=== PATIENT | female | born 1940 | race Caucasian/White ===

== ENCOUNTER 2016-10-13 19:00 | Emergency (ER) | payer BC ==
[~2016-10-13] VITALS: Ht 157.5 cm; Wt 111.7 kg
[~2016-10-13 19:00] MED LIST: ALL300 PO; ATEN-173 PO; ATOR-24 PO; BNC4025 PO; CLBCRM30 EXT; COEN200C4 PO; GLC500 PO
[2016-10-13 19:04] VITALS: TEMP 37.3; Ht 157.5 cm; Wt 111.7 kg
--- NOTE | 2016-10-13 20:52 | EMERGENCY ROOM VISIT NOTE ---
History Report prepared by Mary: Aurora Samano Under the Supervision of: Dr. Rom Webster M.D. First contact with patient: 20:46 Chief Complaint: THROAT PAIN/INJURY Stated Complaint: SORE THROAT,SWOLLEN,DIFFICULT TO BREATHE History of Present Illness The patient is a 76 year old female who presents to the Emergency Room with complaints of worsening throat pain beginning a few days prior to arrival. She states that she has been experiencing pain to her throat as well as a soreness. She is currently on Augmentin which causes diarrhea. She notes that textured food causes an increase in pain. The patient has been experiencing a cough and during has trouble breathing. The patient was seen by both her PCP and [facility]. She denies fever, nasal drainage, or abdominal pain. Source of History: patient Onset: few days [employer] Position: throat Quality: other (pain and soreness) Timing: worsening Modifying Factors (Worsening): eating (texture food) Associated Symptoms: + SOB, + cough, + diarrhea, No abdominal pain Review of Systems All systems have been listed, reviewed, and are negative other than those previously mentioned. Please see Additional Medical History Sheet. Past Medical & Surgical Medical Problems: (1) HLD (hyperlipidemia) (2) HTN (hypertension) (3) Pre-diabetes Family History Patient reports no known family medical history. Social History Smoking Status: Never Smoker Alcohol Use: occasionally Marital Status: Housing Status: lives with significant other Current/Historical Medications Scheduled Allopurinol (Zyloprim *), 300 MG PO HS Atenolol (Tenormin), 25 MG PO HS Atorvastatin (Lipitor), 40 MG PO HS Clobetasol Propionate (Clobetasol Propionate Cream 0.05%), 1 APPLN EXT PRN Coenzyme Q10 (Ubidecarenone) (Coq-10), 1 CAP PO DAILY AT LUNCH Metformin Hcl (Glucophage *), 500 MG PO BID Olmesartan/Hctz (Benicar Hct 40/25 *), 1 TAB PO QAM Allergies Coded Allergies: Neomycin (Verified Allergy, Intermediate, SWELLING, REDNESS, 10/13/16) Nickel (Verified Allergy, Unknown, RASH, 10/13/16) Adhesives (Verified Adverse Reaction, Intermediate, SKIN IRRITATION, ) Corticosteroids (Verified Adverse Reaction, Intermediate, PAIN,TACHYCARDIA ,FEELING OF IMPENDING DOOM with oral steriod, 10/13/16) Physical Exam Vital Signs Date Time Temp Pulse Resp B/P Pulse Ox O2 Delivery O2 Flow Rate FiO2 10/13/16 21:32 98 18 159/84 96 10/13/16 19:07 Room Air 10/13/16 19:04 37.3 119 16 169/90 92 Room Air Physical Exam GENERAL: Patient awake, alert, oriented x 3. Patient follows commands. Patient does not appear toxic. Patient is adequately hydrated and well- nourished. SKIN: No erythema, pallor, cyanosis or rash HEENT: Normal head, pupils equal, reactive to light and accommodation. Ears normal. Oral cavity and posterior pharynx appear normal. Slight tenderness over maxillary sinus, no tenderness over frontal sinus. Neck: Without adenopathy , no neck vein distention. LUNGS: Clear to auscultation. No wheezes, no rales, no rhonchi. HEART: No murmurs. No gallops. No rubs ABDOMEN: Obese and nontender. EXTREMITIES: No signs of trauma or infection. NEUROLOGIC: Cranial nerves II-XII within normal limits. No gross motor sensory function deficits. Medical Decision & Procedures ED Course 2046: Past medical records reviewed. The patient was evaluated in room B4. A complete history and physical examination was performed. 2108: Upon reevaluation, the patient appeared to have improvement of her symptoms. I discussed today's findings with her. She verbalized agreement of the treatment plan. She was discharged home. Medical Decision Nurses notes reviewed. Medical history sheet reviewed. Differential diagnosis includes but is not limited to: Pharyngitis, sinusitis The patient is here with a sensation of choking. She describes phlegm caught in her throat. She's been on 3 days of Augmentin. That has provided little to no relief but has given her diarrhea. The patient's had 2 strep tests which were negative. Examination reveals no swelling or pus in the posterior pharynx. She has no adenopathy. Most likely this the swelling is distal. The patient has had major problems with steroids in the past and is unwilling to take steroids again. We discussed other options including humidified air and gargling with hot saline. Most likely the patient has a viral source for her infection. She will try taking antibiotics for at least another 2 days. The patient's pulse ox was 94% on room air. Impression Primary Impression: Pharyngitis Additional Impression: Sinusitis Scribe Attestation The scribe's documentation has been prepared under my direction and personally reviewed by me in its entirety. I confirm that the note above accurately reflects all work, treatment, procedures, and medical decision making performed by me. Departure Information Dispostion Home / Self-Care Referrals Lissette Mccormick D.O. (PCP) Forms HOME CARE DOCUMENTATION FORM, IMPORTANT VISIT INFORMATION, WORK / SCHOOL INSTRUCTIONS Patient Instructions My [facility] Additional Instructions 600 mg ibuprofen every 6 hours as needed for pain. Humidified air in your bedroom. Take hot showers with steam. Gargle with hot salt water. Continue your antibiotic for at least 2 more days. Problem Qualifiers
[2016-10-13 21:32] VITALS: BP 159/84; PULSE 98; O2SAT 96
[2016-10-14] MEDS ORDERED: ALL300 PO ×2 (13:11)
[2016-10-14] MEDS ORDERED: GLC500 PO (13:11)
[2016-10-14] MEDS ORDERED: COEN200C17 PO ×2 (13:11)
[2016-10-14] MEDS ORDERED: BNC/4025 PO ×2 (13:11)
[2016-10-14] MEDS ORDERED: GLC/500 PO ×2 (16:51)
[2016-10-18] MEDS ORDERED: AMOX500T PO ×2 (11:47)
[2016-10-18] MEDS ORDERED: PRD20 PO ×2 (11:47)
[2016-10-18] MEDS ORDERED: BENZ100C7 PO ×2 (11:47)
[2017-02-06] MEDS ORDERED: METF-384 PO (11:57)
[2017-02-06] MEDS ORDERED: PRLSR20 PO (11:57)
== END 2016-10-13 21:32 | disposition home or self-care (01) ==
LOC: C.EDB 19:01
DX: J02.9 Acute pharyngitis, unspecified (principal); J32.9 Chronic sinusitis, unspecified; E78.5 Hyperlipidemia, unspecified; I10 Essential (primary) hypertension; R73.03 Prediabetes; Z79.84 Long term (current) use of oral hypoglycemic drugs

== ENCOUNTER 2016-10-14 11:46 | Inpatient (IN) | payer BC, OTHER ==
[~2016-10-14] VITALS: Ht 157.5 cm; Wt 113.5 kg
[2016-10-14] MEDS ORDERED: SODIUM CHLORIDE 0.9% 1000ML 1,000 ML IV ONE (13:00)
[2016-10-14] MEDS ORDERED: SODIUM CHLORIDE 0.9% 1000ML 1,000 ML IV STA (13:00)
[2016-10-14] MEDS ORDERED: KETOROLAC TROMETHAMINE 30 MG/ML VIAL IV STA (13:00)
[2016-10-14] MEDS ORDERED: BNC/4025 PO ×2 (13:11)
[2016-10-14] MEDS ORDERED: COEN200C17 PO ×2 (13:11)
[2016-10-14] MEDS ORDERED: GLC500 PO (13:11)
[2016-10-14] MEDS ORDERED: ALL300 PO ×2 (13:11)
--- NOTE | 2016-10-14 13:27 | DIAGNOSTIC IMAGING REPORT ---
CHEST ONE VIEW PORTABLE CLINICAL HISTORY: Atypical chest pain, wheezing. COMPARISON STUDY: 01/07/2016 FINDINGS: The heart is mildly enlarged. There is no overt failure. There are no pleural effusions. There is no focal pulmonary consolidation.[ There is a left upper lung zone density possibly representing a summation. A follow-up PA and lateral study with obliques is recommended. IMPRESSION: 1. Left upper lung zone density, possibly representing a summation. A follow-up PA and lateral study with obliques is recommended. 2. No evidence of acute parenchymal consolidation Electronically signed by: Jose Simons M.D. 10/14/2016 1:26 PM Dictated Date/Time: 10/14/2016 1:24 PM
--- NOTE | 2016-10-14 13:35 | EMERGENCY ROOM VISIT NOTE ---
History Report prepared by Mary: Robyn Sutherland Under the Supervision of: Dr. Vu Romero M.D. First contact with patient: 12:21 Chief Complaint: DEHYDRATION Stated Complaint: CAN'T SWALLOW, DEHYDRATION Nursing Triage Summary: pt here last pm for same pt states having trouble swallowing, only taking sips and then gags, feels is dehydrated. pt was sent home last pm from ed History of Present Illness The patient is a 76 year old female who presents to the Emergency Room with complaints of a persistent cough with mucous production starting about a week ago. She reports a sore throat. She states that it feels as though there is a scab in her throat. She has worsening pain with swallowing and has difficulty swallowing due to the pain. She has been choking, coughing which leads to difficulty breathing when she tried to eat and drink. She had some relief with saltwater rinse. She also complains of left ear aches. The patient denies any recent ill contacts, headache, chest pain, abdominal pain, nausea, vomiting, urinary symptoms, or any other complaints. She has had 2 negative strep tests. The patient is currently on Augmentin but has been unable to take it as prescribed due to difficulty swallowing. She also reports diarrhea. The patient was referred to the Emergency Room by [facility] for concerns about dehydration. Source of History: patient, spouse/significant other Onset: about a week ago Position: other (global) Quality: other (cough) Timing: other (persistent) Modifying Factors (Worsening): other (swallowing) Modifying Factors (Relieving): other (some relief with saltwater rinse) Associated Symptoms: + SOB, + diarrhea, + sorethroat, No abdominal pain, No chest pain, No headache, No nausea, No urinary symptoms, No vomiting Review of Systems See HPI for pertinent positives & negatives. A total of 10 systems reviewed and were otherwise negative. Past Medical & Surgical Medical Problems: (1) Diabetes mellitus, type II (2) Dyslipidemia (3) HTN (hypertension) Surgical Problems: (1) H/O parathyroidectomy (2) History of tonsillectomy and adenoidectomy (3) History of total hysterectomy (4) History of tubal ligation (5) Hx of lumbosacral spine surgery (6) S/P cervical spinal fusion Old medical records were reviewed. Nurse's notes were reviewed and I agree with. Family History Patient reports no known family medical history. Social History Smoking Status: Never Smoker Alcohol Use: occasionally Marital Status: Housing Status: lives with significant other Current/Historical Medications Scheduled Allopurinol (Allopurinol), 300 MG PO HS Atenolol (Tenormin), 25 MG PO HS Atorvastatin (Lipitor), 40 MG PO HS Coenzyme Q10 (Ubidecarenone) (Co-Enzyme Q10), 200 MG PO DAILY Metformin Hcl (Glucophage), 1,000 MG PO BID Olmesartan/Hctz (Benicar Hct 40/25), 1 TAB PO DAILY Allergies Coded Allergies: Neomycin (Verified Allergy, Intermediate, SWELLING, REDNESS, 10/14/16) Nickel (Verified Allergy, Unknown, RASH, 10/14/16) Adhesives (Verified Adverse Reaction, Intermediate, SKIN IRRITATION, ) Corticosteroids (Verified Adverse Reaction, Intermediate, PAIN,TACHYCARDIA ,FEELING OF IMPENDING DOOM with oral steriod, 10/14/16) Physical Exam Vital Signs Date Time Temp Pulse Resp B/P Pulse Ox O2 Delivery O2 Flow Rate FiO2 10/14/16 18:19 87 20 176/94 93 10/14/16 17:56 87 20 176/94 93 Room Air 10/14/16 17:20 86 20 144/93 91 Room Air 10/14/16 15:24 82 20 157/81 91 Room Air 10/14/16 13:53 95 18 168/102 93 Room Air 10/14/16 12:08 37.0 90 18 137/84 95 Room Air Physical Exam General: Non-ill appearing, older female, in no acute distress. HEENT: Normal cephalic atraumatic. Pupils are equal round and reactive to light. Extraocular movements are intact. Oropharynx is pink with moist mucous membranes. No swelling of the mouth lips or tongue. Floor of the mouth is soft , no abscess seen. Right TM is normal, left TM is obscured by cerumen. Neck: Supple with a midline trachea. No meningeal signs or stiffness, no JVD or bruits. No Stridor. Chest: Clear to auscultation bilaterally. No wheezes or rhonchi. No increased work of breathing. Heart: regular rate and rhythm. Abdomen: Soft nontender, nondistended without rebound guarding or rigidity. Extremities: No cyanosis clubbing or edema. No calf tenderness or assymetry Spine/Back. Non tender to palpation. No CVA tenderness Skin: Good turgor without rashes. Neurologic exam: Cranial nerves two through 12 are intact. Motor and sensation are intact and symmetrical throughout. Medical Decision & Procedures ER Provider Diagnostic Interpretation: X ray results as stated below per my interpretation and radiologist interpretation. CT results as stated below per my review and radiologist interpretation: CT soft tissue neck SOFT TISSUE NECK WITHOUT CLINICAL HISTORY: eval for mass/ abbess/ infection nodule TECHNIQUE: Transaxial acquisition. Multiple axial reformatted images. COMPARISON STUDY: None FINDINGS: Mild fatty replacement of the parotid and submandibular glands. Markers placed over the right submandibular gland. No evidence for abscess or collection. Several small reactive cervical nodes in the cervical chains bilaterally measuring from 9 to 12 mm on the right as well as left. Bulky and/or Zohaib. Nodularity is not appreciated. Pulmonary apices are clear. Glottic and subglottic regions are remarkable for closely opposed vocal cords. This is felt to be secondary to patient stated respiration with no well-defined mass appreciated. IMPRESSION: 1. A marker placed over the clinically palpable nodularity of the right submandibular region shows the nodule to represent the right submandibular gland. 2. Mild reactive cervical adenitis. 3. Study is otherwise negative. Electronically signed by: Antonio Scanlon M.D. 10/14/2016 2:26 PM Dictated Date/Time: 10/14/2016 2:20 PM CHEST ONE VIEW PORTABLE CLINICAL HISTORY: Atypical chest pain, wheezing. COMPARISON STUDY: 01/07/2016 FINDINGS: The heart is mildly enlarged. There is no overt failure. There are no pleural effusions. There is no focal pulmonary consolidation.[ There is a left upper lung zone density possibly representing a summation. A follow-up PA and lateral study with obliques is recommended. IMPRESSION: 1. Left upper lung zone density, possibly representing a summation. A follow-up PA and lateral study with obliques is recommended. 2. No evidence of acute parenchymal consolidation Electronically signed by: Jose Simons M.D. 10/14/2016 1:26 PM Dictated Date/Time: 10/14/2016 1:24 PM Laboratory Results 10/14/16 13:30 Red Blood Count 4.64, Mean Corpuscular Volume 86.6, Mean Corpuscular Hemoglobin 29.3, Mean Corpuscular Hemoglobin Concent 33.8, Mean Platelet Volume 11.5, Neutrophils (%) (Auto) 80.2, Lymphocytes (%) (Auto) 13.1, Monocytes (%) (Auto) 5.2, Eosinophils (%) (Auto) 0.9, Basophils (%) (Auto) 0.2, Neutrophils # (Auto) 10.32, Lymphocytes # (Auto) 1.68, Monocytes # (Auto) 0.67, Eosinophils # (Auto) 0.12, Basophils # (Auto) 0.02 10/14/16 13:30 Test 10/14/16 13:30 10/14/16 13:50 White Blood Count 12.86 K/uL (4.8-10.8) Red Blood Count 4.64 M/uL (4.2-5.4) Hemoglobin 13.6 g/dL (12.0-16.0) Hematocrit 40.2 % (37-47) Mean Corpuscular Volume 86.6 fL (80-100) Mean Corpuscular Hemoglobin 29.3 pg (25-34) Mean Corpuscular Hemoglobin Concent 33.8 g/dl (32-36) Platelet Count 249 K/uL (130-400) Mean Platelet Volume 11.5 fL (7.4-10.4) Neutrophils (%) (Auto) 80.2 % Lymphocytes (%) (Auto) 13.1 % Monocytes (%) (Auto) 5.2 % Eosinophils (%) (Auto) 0.9 % Basophils (%) (Auto) 0.2 % Neutrophils # (Auto) 10.32 K/uL (1.4-6.5) Lymphocytes # (Auto) 1.68 K/uL (1.2-3.4) Monocytes # (Auto) 0.67 K/uL (0.11-0.59) Eosinophils # (Auto) 0.12 K/uL (0-0.5) Basophils # (Auto) 0.02 K/uL (0-0.2) RDW Standard Deviation 44.0 fL (36.4-46.3) RDW Coefficient of Variation 13.9 % (11.5-14.5) Immature Granulocyte % (Auto) 0.4 % Immature Granulocyte # (Auto) 0.05 K/uL (0.00-0.02) Anion Gap 11.0 mmol/L (3-11) Est Creatinine Clear Calc Drug Dose 44.6 ml/min Estimated GFR () 46.8 Estimated GFR (Non- 40.4 BUN/Creatinine Ratio 16.5 (10-20) Calcium Level 9.7 mg/dl (8.5-10.1) Total Bilirubin 1.1 mg/dl (0.2-1) Direct Bilirubin 0.2 mg/dl (0-0.2) Aspartate Amino Transf (AST/SGOT) 15 U/L (15-37) Alanine Aminotransferase (ALT/SGPT) 17 U/L (12-78) Alkaline Phosphatase 101 U/L (45-117) Total Protein 7.2 gm/dl (6.4-8.2) Albumin 3.6 gm/dl (3.4-5.0) Lipase 136 U/L (73-393) Influenza Type A Antigen Neg for Influ A (NEG) Influenza Type B Antigen Neg for Influ B (NEG) Laboratory studies as stated above per my review. Medications Administered Medications (Trade) Dose Ordered Sig/Laila Route Start Time Stop Time Status Last Admin Dose Admin Sodium Chloride 1,000 ml @ 999 mls/hr Q1H1M STAT IV 10/14/16 13:00 10/14/16 14:00 DC 10/14/16 13:25 999 MLS/HR Sodium Chloride (Nss 1000ml) 1,000 ml @ 150 mls/hr Q6H40M ONCE IV 10/14/16 13:00 10/14/16 19:39 10/14/16 14:26 150 MLS/HR Ketorolac Tromethamine (Toradol Inj) 30 mg NOW STAT IV 10/14/16 13:00 10/14/16 13:02 DC 10/14/16 13:25 30 MG Ceftriaxone Sodium (Rocephin Inj) 1 gm NOW STAT IV 10/14/16 15:46 10/14/16 15:50 DC 10/14/16 17:19 1 GM ED Course 1221: Past medical records reviewed. The patient was evaluated in room C11B, and a complete history and physical examination were performed. 1300: Toradol Inj 30 mg IV, Sodium Chloride 1000 ml @ 150 mls/hr IV, Sodium Chloride 1000 ml @ 999 mls/hr IV 1345: I reevaluated the patient who is not in any distress. She is complaining of something dripping down her throat. 1546: Rocephin Inj 1 gm IV 1547: The patient is having difficulty with drinking water. Upon reevaluation, the patient is resting comfortably. I discussed the results and treatment plan with the patient. She verbalized agreement of the treatment plan. The patient will be evaluated for further management. 1551: I discussed the patient's case with Georgia Ortiz PA-C with [facility]. 1600: Azithromycin 500 mg/Dextrose 255 ml @ 125 mls/hr IV Medical Decision Differential diagnosis includes but is not limited to pharyngitis, dehydration, bronchitis, pneumonia, abscess. This patient comes in as described above. She was placed in room C11. She is here for sore throat. She's had URI symptoms and a cough for about a week now . she's had 2 negative strep test. She has been on Augmentin however could not take it she has difficulty swallowing over the last day. She's had no vomiting.. She looks well on exam is afebrile here she is nontoxic and non- lethargic she is swallowing secretions without difficulties. IV access established hydrated with a 1 L normal saline bolus and 200 mL an hour IV normal saline. Chest x-ray was obtained as well as multiple blood testing. She was reassessed frequently. She was given Toradol 30 mg IV. He does have a frequent hacking cough. Chest x-ray shows some summation in the right upper lobe but no definite infiltrate. She has a mildly elevated white count as well as BUN and creatinine. Clinically, I do think she is little bit dehydrated. A CAT scan of her neck she has a some cervical lymphadenopathy but no evidence of any airway obstruction or abscess. Blood cultures were obtained. She was given IV Rocephin as well as IV azithromycin as well as IV fluids. She's not feeling much better. I do think she is being admitted for further treatment and evaluation and hydration. I have consulted the [facility] hospitalist this on ER will admit her for these measures. Consults Time Called: 1647 Consulting Physician: Geogria Ortiz PA-C with [facility] Returned Call: [phone] I discussed the patient's case with Georgia Ortiz PA-C with [facility]. Impression Primary Impression: Dehydration Additional Impressions: Bronchitis Dysphagia Scribe Attestation The scribe's documentation has been prepared under my direction and personally reviewed by me in its entirety. I confirm that the note above accurately reflects all work, treatment, procedures, and medical decision making performed by me. Departure Information Dispostion Being Evaluated By Hospitalist Referrals No Doctor, Assigned (PCP) Patient Instructions My [facility] Problem Qualifiers
[2016-10-14 13:43] LABS: BASO % 0.2 %; BASO ABS # 0.02 K/uL (0-0.2); COMPLETE YES; EOS % 0.9 %; HEMATOCRIT 40.2 % (37-47); IG% 0.4 %; LYMPH % 13.1 %; LYMPH ABS # 1.68 K/uL (1.2-3.4); MEAN CELL VOLUME 86.6 fL (80-100); MEAN CORPUSCULAR HEMOGLOBIN 29.3 pg (25-34); MEAN CORPUSCULAR HGB CONC 33.8 g/dl (32-36); MEAN PLATELET VOLUME 11.5 fL (7.4-10.4); MONO % 5.2 %; NEUT % 80.2 %; PLATELET COUNT 249 K/uL (130-400); RED BLOOD COUNT 4.64 M/uL (4.2-5.4); WHITE BLOOD COUNT 12.86 K/uL (4.8-10.8)
[2016-10-14 14:04] LABS: BUN/CREATININE RATIO 16.5 (10-20); CREATININE 1.3 mg/dl (0.60-1.20)
[2016-10-14 14:05] LABS: CALCIUM 9.7 mg/dl (8.5-10.1); POTASSIUM 4.2 mmol/L (3.5-5.1)
--- NOTE | 2016-10-14 14:27 | DIAGNOSTIC IMAGING REPORT ---
CT soft tissue neck SOFT TISSUE NECK WITHOUT CLINICAL HISTORY: eval for mass/ abbess/ infection nodule TECHNIQUE: Transaxial acquisition. Multiple axial reformatted images. COMPARISON STUDY: None FINDINGS: Mild fatty replacement of the parotid and submandibular glands. Markers placed over the right submandibular gland. No evidence for abscess or collection. Several small reactive cervical nodes in the cervical chains bilaterally measuring from 9 to 12 mm on the right as well as left. Bulky and/or Zohaib. Nodularity is not appreciated. Pulmonary apices are clear. Glottic and subglottic regions are remarkable for closely opposed vocal cords. This is felt to be secondary to patient stated respiration with no well-defined mass appreciated. IMPRESSION: 1. A marker placed over the clinically palpable nodularity of the right submandibular region shows the nodule to represent the right submandibular gland. 2. Mild reactive cervical adenitis. 3. Study is otherwise negative. Electronically signed by: Antonio Scanlon M.D. 10/14/2016 2:26 PM Dictated Date/Time: 10/14/2016 2:20 PM
[2016-10-14] MEDS ORDERED: CEFTRIAXONE SOD INJ 1 GM ADDVIAL IV STA (15:46)
[2016-10-14] MEDS ORDERED: AZITHROMYCIN IV 500 MG in DEXTROSE 5% 250ML 250 ML IV ONE (16:00)
[2016-10-14] MEDS ORDERED: GLUCOSE 10 TABS/TUBE PO PRN (16:30)
[2016-10-14] MEDS ORDERED: DEXTROSE 50% 50 ML SYR IV PRN (16:30)
[2016-10-14] MEDS ORDERED: ACETAMINOPHEN 325 MG TAB PO PRN (16:30)
[2016-10-14] MEDS ORDERED: GLUCAGON FOR INJ 1 MG VIAL SQ PRN (16:30)
[2016-10-14] MEDS ORDERED: ONDANSETRON INJ 2 MG/ML 2 ML VIAL IV PRN (16:30)
[2016-10-14] MEDS ORDERED: GLUCOSE 40% GEL 15 GM TUBE PO PRN (16:30)
[2016-10-14] MEDS ORDERED: ALBUT/IPRATROP 3MG/0.5MG NEB 3 ML VIAL INH PRN (16:45)
[2016-10-14] MEDS ORDERED: IV FLUIDS COMPLETED PRN (16:45)
[2016-10-14] MEDS ORDERED: GLC/500 PO ×2 (16:51)
--- NOTE | 2016-10-14 17:13 | History and Physical ---
History & Physical Date & Time of Service: Oct 14, 2016 at 16:52 Chief Complaint: Can't Swallow, Dehydration Primary Care Physician: Lissette Mccormick D.O. History of Present Illness Source: patient This is a 76 y/o female with PMHx of DM 2, HTN and Dyslipidemia who presents to the ED c/o persistent cough for one week. Pt reports that 1 week ago she developed a cough that is productive of clear sputum. Sxs are assoc with congestion, sore throat, L ear pain and swollen glands. Pt was seen at [facility] a few days ago where she was prescribed a 10-day course of Augmentin for suspected sinus infection. Pt has been having trouble taking the medication due to her sore throat. Her sxs have continued to worsen. She has been trying steam therapy and salt water gargles with only temporary relief. Last night her cough was so bad that she felt very short of breath which scared her. This morning she was having more problems with swallowing and felt like "something was stuck" in her throat. Pt has not been able to eat or drink due to sore throat/difficulty swallowing. Her last meal was yesterday morning and she has not taken any of her scheduled medications today. Pt denies fever/chills, diaphoresis, chest pain, palpitations, abd pain, N/V, bowel or bladder issues, LE edema ,calf pain, lightheadedness/dizziness. In the ED, patient was hypertensive on arrival. She is afebrile with leukocytosis >12k. creat 1.3. negative flu. Neck CT reactive cerv nodes; no masses. CXR PALOMO density; no consolidation. Pt received IVF and abx in the ED. She will be admitted for further evaluation and treatment. Past Medical/Surgical History Medical Problems: (1) Diabetes mellitus, type II Status: Chronic (2) Dyslipidemia Status: Chronic (3) HTN (hypertension) Status: Chronic Surgical Problems: (1) H/O parathyroidectomy Status: Resolved (2) History of tonsillectomy and adenoidectomy Status: Resolved (3) History of total hysterectomy Status: Resolved (4) History of tubal ligation Status: Resolved (5) Hx of lumbosacral spine surgery Status: Resolved (6) S/P cervical spinal fusion Status: Resolved Family History Patient reports no known family medical history. Social History Smoking Status: Former Smoker (20 pack year history; quit 1982) Alcohol Use: none Drug Use: none Marital Status: Housing status: lives with family Occupational Status: retired Immunizations History of Influenza Vaccine: Yes Influenza Vaccine Date: Jun 30, 2007 History of Tetanus Vaccine?: Unknown History of Pneumococcal: Yes Pneumococcal Date: Jul 01, 2006 History of Hepatitis B Vaccine: Unknown Multi-Drug Resistant Organisms History of MDRO: No Allergies Coded Allergies: Neomycin (Verified Allergy, Intermediate, SWELLING, REDNESS, 10/14/16) Nickel (Verified Allergy, Unknown, RASH, 10/14/16) Adhesives (Verified Adverse Reaction, Intermediate, SKIN IRRITATION, ) Corticosteroids (Verified Adverse Reaction, Intermediate, PAIN,TACHYCARDIA ,FEELING OF IMPENDING DOOM with oral steriod, 10/14/16) Home Medications Scheduled Allopurinol (Allopurinol), 300 MG PO HS Atenolol (Tenormin), 25 MG PO HS Atorvastatin (Lipitor), 40 MG PO HS Coenzyme Q10 (Ubidecarenone) (Co-Enzyme Q10), 200 MG PO DAILY Metformin Hcl (Glucophage), 1,000 MG PO BID Olmesartan/Hctz (Benicar Hct 40/25), 1 TAB PO DAILY Review of Systems Constitutional: + fatigue, No chills, No fever, No sweats, No weakness Eyes: No worsening of vision ENT: + trouble swallowing, No hearing loss Respiratory: + cough, + shortness of breath, + sputum, No dyspnea at rest, No dyspnea on exertion, No hemoptysis, No wheezing Cardiovascular: No chest pain, No claudication, No edema, No palpitations Abdomen: No GI bleeding, No constipation, No diarrhea, No nausea, No pain, No vomiting Musculoskeletal: No calf pain, No swelling Genitourinary - Female: No dysuria Neurologic: No weakness Psychiatric: No depression symptoms Endocrine: + fatigue Hematologic / Lymphatic: No abnormal bleeding/bruising Integumentary: No new/changing skin lesions Physical Exam Vital Signs Date Time Temp Pulse Resp B/P Pulse Ox O2 Delivery O2 Flow Rate FiO2 10/14/16 15:24 82 20 157/81 91 Room Air 10/14/16 13:53 95 18 168/102 93 Room Air 10/14/16 12:08 37.0 90 18 137/84 95 Room Air General Appearance: WD/WN, no apparent distress, + obese, + pertinent finding ( Pt is sitting up on edge of bed with at bedside ) Head: normocephalic, atraumatic Eyes: normal inspection ENT: hearing grossly normal, + pharyngeal erythema, + pertinent finding (R TM pearly sim; L TM completely obscured due to cerumen impaction) Neck: supple Respiratory/Chest: chest non-tender, lungs clear, normal breath sounds, no respiratory distress, + pertinent finding (no wheezing or crackles noted ) Cardiovascular: regular rate, rhythm, no edema, no murmur Abdomen/GI: normal bowel sounds, non tender, soft Back: normal inspection Extremities/Musculoskelatal: normal inspection, no calf tenderness, + pertinent finding (1+ pitting edema with venous stasis skin changes to bilat LE) Neurologic/Psych: alert, normal mood/affect, oriented x 3 Skin: normal color, warm/dry Lymphatic: no adenopathy Diagnostics Laboratory Results Results Past 24 Hours Test 10/14/16 13:30 10/14/16 13:50 Range/Units White Blood Count 12.86 4.8-10.8 K/uL Red Blood Count 4.64 4.2-5.4 M/uL Hemoglobin 13.6 12.0-16.0 g/dL Hematocrit 40.2 37-47 % Mean Corpuscular Volume 86.6 80-100 fL Mean Corpuscular Hemoglobin 29.3 25-34 pg Mean Corpuscular Hemoglobin Concent 33.8 32-36 g/dl Platelet Count 249 130-400 K/uL Mean Platelet Volume 11.5 7.4-10.4 fL Neutrophils (%) (Auto) 80.2 % Lymphocytes (%) (Auto) 13.1 % Monocytes (%) (Auto) 5.2 % Eosinophils (%) (Auto) 0.9 % Basophils (%) (Auto) 0.2 % Neutrophils # (Auto) 10.32 1.4-6.5 K/uL Lymphocytes # (Auto) 1.68 1.2-3.4 K/uL Monocytes # (Auto) 0.67 0.11-0.59 K/uL Eosinophils # (Auto) 0.12 0-0.5 K/uL Basophils # (Auto) 0.02 0-0.2 K/uL RDW Standard Deviation 44.0 36.4-46.3 fL RDW Coefficient of Variation 13.9 11.5-14.5 % Immature Granulocyte % (Auto) 0.4 % Immature Granulocyte # (Auto) 0.05 0.00-0.02 K/uL Sodium Level 141 136-145 mmol/L Potassium Level 4.2 3.5-5.1 mmol/L Chloride Level 102 98-107 mmol/L Carbon Dioxide Level 28 21-32 mmol/L Anion Gap 11.0 3-11 mmol/L Blood Urea Nitrogen 21 7-18 mg/dl Creatinine 1.30 0.60-1.20 mg/dl Est Creatinine Clear Calc Drug Dose 44.6 ml/min Estimated GFR () 46.8 Estimated GFR (Non- 40.4 BUN/Creatinine Ratio 16.5 10-20 Random Glucose 143 70-99 mg/dl Calcium Level 9.7 8.5-10.1 mg/dl Total Bilirubin 1.1 0.2-1 mg/dl Direct Bilirubin 0.2 0-0.2 mg/dl Aspartate Amino Transf (AST/SGOT) 15 15-37 U/L Alanine Aminotransferase (ALT/SGPT) 17 12-78 U/L Alkaline Phosphatase 101 45-117 U/L Total Protein 7.2 6.4-8.2 gm/dl Albumin 3.6 3.4-5.0 gm/dl Lipase 136 73-393 U/L Influenza Type A Antigen Neg for Influ A NEG Influenza Type B Antigen Neg for Influ B NEG Microbiology Results 10/14/16 Blood Culture, Salvatore Batch Pending 10/14/16 Blood Culture, Salvatore Batch Pending Diagnostic Radiology SOFT TISSUE NECK CT IMPRESSION: 1. A marker placed over the clinically palpable nodularity of the right submandibular region shows the nodule to represent the right submandibular gland. 2. Mild reactive cervical adenitis. 3. Study is otherwise negative. CXR IMPRESSION: 1. Left upper lung zone density, possibly representing a summation. A follow-up PA and lateral study with obliques is recommended. 2. No evidence of acute parenchymal consolidation Impression Assessment and Plan PERSISTENT COUGH; POSSIBLY SECONDARY TO BRONCHITIS pt presents with persistent cough assoc with congestion and sore throat -admit observation status to med/surg -pt is afebrile with leukocytosis >12k -CXR (AP) + PALOMO density; no consolidation; will repeat with AP/lateral CXR -influenza negative -blood and sputum cx-pending -start Rocephin and Zithromax -start Mucinex, Tessalon Perles and duonebs PRN -monitor VICK -creatinine 1.3 (bl=1.0); likely elevated due to dehydration from poor PO intake -hold Benicar for now -start IVF -monitor with prp daily and avoid nephrotoxic agents when able DYSPHAGIA -Neck CT Impression: + mild reactive cervical adenitis; no masses or abscesses noted -clear liquid diet for now -consult speech DM 2 -last A1C from June was 6.8 -hold metformin -start ISS -continue to monitor HTN -BP elevated; pt did not take medication this morning -give atenolol now and cont daily -hold Benicar due to elevated creatinine -monitor DYSLIPIDEMIA -cont statin DVT PROPHYLAXIS -subq Lovenox CODE STATUS -FULL CODE status per discussion with patient upon admission DISPO -Pt seen in collaboration with Dr. Rivera. Please see his addendum for further details. Thanks! ATTENDING ADDENDUM care coordinated with SALLY Stahl please refer to her notes for full details, I agree with her notes patient seen and examined, records reviewed by myself as well on exam, patient seen resting in bedside chair, comfortable, not in distress reports that she has difficulty swallowing even liquids, coughs after she tries to drink or swallow no dyspnea, chest pain, dizziness, nausea no other symptoms VS noted and reviewed oriented x 3 , not in distress, speaks in sentences with no effort nor accessory muscle use normal rate, regular rhythm, no murmurs clear breath sounds bilaterally non distended, soft, nontender no bipedal edema, erythema, warmth no neuro deficits WBC 12.8 Crea 1.3 ASSESSMENT/PLAN> PERSISTENT COUGH, POSSIBLE PHARYNGITIS VS. BRONCHITIS - CXR: no infiltrates - empiric Ceftri + Azithro Nebs DYSPHAGIA from PHARYNGITIS? COUGHING? - strict NPO for now Speech Therapy eval tomorrow other diagnoses and plan of care as per SALLY Stahl's notes Kavin Rivera MD VTE Prophylaxis VTE Risk Assessment Done? Y/N: Yes Risk Level: Moderate
--- NOTE | 2016-10-14 17:50 | DIAGNOSTIC IMAGING REPORT ---
TWO VIEW CHEST CLINICAL HISTORY: Cough and dyspnea. FINDINGS: PA and lateral chest radiographs are compared to study performed earlier the same day 10/14/2016. Correlation is made with CT scan of the neck dated 10/14/2016. The Examination is degraded by large body habitus. The heart is mildly enlarged and there is atherosclerotic calcification of the thoracic aorta. The pulmonary vasculature is noncongested. Chronic interstitial thickening is unchanged. No airspace consolidation or pleural effusion is identified. Nodularity in the left upper lobe is again questioned. There is no pneumothorax. The skeletal structures are osteopenic. Degenerative change is noted throughout the thoracic spine. IMPRESSION: 1. Mild cardiac enlargement with no active disease in the chest. 2. The nodular density question on the earlier examination in the left upper lobe is again seen, and is likely related to bony overgrowth at the first rib ending. This region was covered on today's CT scan of the neck and no lesion was seen. Electronically signed by: Stu Youssef M.D. 10/14/2016 5:49 PM Dictated Date/Time: 10/14/2016 5:45 PM
[2016-10-14 18:54] VITALS: BP 157/84; PULSE 88; TEMP 36.8; O2SAT 90
[2016-10-14] MEDS: ATORVASTATIN 20 MG TAB PO SCH ×2 (20:54→21:00)
[2016-10-14] MEDS: BENZONATATE 100MG CAP PO SCH (20:54)
[2016-10-14] MEDS: ALLOPURINOL 300 MG TAB PO SCH (20:54)
[2016-10-14] MEDS: GUAIFENESIN 600 MG TABCR PO SCH ×2 (20:54→21:00)
[2016-10-14] MEDS: INSULIN ASPART 100 UNITS/ML 3 ML PEN SC SCH (20:56)
[2016-10-14] MEDS: SODIUM CHLORIDE 0.9% 1000ML 1,000 ML IV SCH (21:11)
[2016-10-14] MEDS: GUAIFENESIN SUGAR FREE 100 MG/5 ML UDC PO PRN (21:36)
[2016-10-14] MEDS: ENOXAPARIN 40 MG/0.4 ML SYR SQ SCH (21:36)
[2016-10-14 22:00] VITALS: BP 105/65; PULSE 91; TEMP 37.4; O2SAT 95; Ht 157.5 cm; Wt 113.5 kg
[2016-10-14] MEDS ORDERED: LEVALBUTEROL/IPRATROPIUM NEB INH SCH (22:00)
[2016-10-14 23:45] VITALS: PULSE 87; O2SAT 100
[2016-10-14] MEDS: LEVALBUTEROL 1.25MG/0.5ML NEB INH SCH (23:45)
[2016-10-14] MEDS: IPRATROPIUM BROMIDE NEB SOLN 0.02% 2.5 ML VIAL INH SCH (23:45)
[2016-10-15] VITALS (9 sets, daily range): BP systolic 123–157; BP diastolic 68–92; PULSE 85–101; TEMP 36.9–37.3; O2SAT 87–98
[2016-10-15] MEDS: LEVALBUTEROL 1.25MG/0.5ML NEB INH SCH ×4 (02:34→19:53)
[2016-10-15] MEDS: IPRATROPIUM BROMIDE NEB SOLN 0.02% 2.5 ML VIAL INH SCH ×4 (02:34→19:53)
[2016-10-15] MEDS ORDERED: DiphenhydrAMINE HCL 50 MG/ML VIAL IV ONE (03:00)
[2016-10-15] MEDS ORDERED: DiphenhydrAMINE INJ 12.5 MG in SYRINGE 0 ML IV ONE (03:00)
[2016-10-15] MEDS: BENZONATATE 100MG CAP PO SCH ×3 (07:30→20:33)
[2016-10-15] MEDS: GUAIFENESIN 600 MG TABCR PO SCH ×2 (07:30→20:33)
[2016-10-15] MEDS: LACTOBACILLUS ACIDOPHILUS (FLORANEX) TAB PO SCH ×3 (07:30→16:33)
[2016-10-15] MEDS: INSULIN ASPART 100 UNITS/ML 3 ML PEN SC SCH ×4 (08:03→20:57)
[2016-10-15 08:24] LABS: HEMATOCRIT 39.1 % (37-47); MEAN CELL VOLUME 86.1 fL (80-100); MEAN CORPUSCULAR HEMOGLOBIN 28.4 pg (25-34); MEAN PLATELET VOLUME 11.6 fL (7.4-10.4); PLATELET COUNT 247 K/uL (130-400); RED BLOOD COUNT 4.54 M/uL (4.2-5.4); WHITE BLOOD COUNT 16.67 K/uL (4.8-10.8)
[2016-10-15 08:54] LABS: CALCIUM 9.1 mg/dl (8.5-10.1); CREATININE 0.93 mg/dl (0.60-1.20); POTASSIUM 3.9 mmol/L (3.5-5.1)
[2016-10-15] MEDS ORDERED: COENZYME Q10 200 MG PO SCH (09:00)
[2016-10-15 10:42] LABS: ESTIMATED AVERAGE GLUCOSE 154 mg/dl; HA1C FLAG Normal (Normal)
[2016-10-15] MEDS: SODIUM CHLORIDE 0.9% 1000ML 1,000 ML IV SCH ×2 (13:15→20:33)
[2016-10-15] MEDS: AZITHROMYCIN IV 250 MG in DEXTROSE 5% 250ML 250 ML IV SCH (15:39)
[2016-10-15] MEDS: CEFTRIAXONE SOD INJ 1 GM in DEXTROSE 5% ADD-VANTAGE 50ML 50 ML IV SCH (17:46)
--- NOTE | 2016-10-15 18:06 | Progress Note ---
Internal Med Progress Note Date of Service: Oct 15, 2016. Provider Documentation: SUBJECTIVE: Patient is seen and examined at bedside. Patient has persistent cough, dysphagia , odynophagia and slightly muffled voice. Denies any chest pain, SOB. OBJECTIVE: Vital Signs-as noted below General Appearance: WD/WN, no apparent distress, obese Head: normocephalic, atraumatic Eyes: normal inspection ENT: hearing grossly normal, + pharyngeal erythema Neck: supple, Trachea midline Respiratory/Chest: normal breath sounds, CTA Cardiovascular: regular rate, rhythm, no edema, no murmur Abdomen/GI: normal bowel sounds, non tender, soft Back: normal inspection Extremities/Musculoskelatal: normal inspection, no calf tenderness, 1+ pitting edema with venous stasis changes Neurologic/Psych: alert, normal mood/affect, oriented x 3 Skin: normal color, warm/dry Lab data as noted below. ASSESSMENT & PLAN: Patient is a 76 yr old female with PMHx of DM 2, HTN and Dyslipidemia presents with persistent cough for one week. Associated symptoms include sore throat, L ear pain and swollen glands for which she went to [facility] and was prescribed Augmentin which she could take only for 3 days secondary to trouble swallowing. She is afebrile but had leukocytosis. Neck CT: suggestive of reactive cervical adenitis. 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 and also has intolerance to steroids in the past Patient had leukocytosis but is afebrile CXR: No consolidation Influenza negative Blood and sputum cultures: pending Continue Rocephin and Zithromax Duonebs PRN Check lactic acid, Procalcitonin VICK creatinine 1.3 at time of admission Resolved hold Benicar Continue IVF Avoid nephrotoxic agents when able DYSPHAGIA Neck CT: mild reactive cervical adenitis NPO for now Failed speech eval Will consult ENT for possible laryngoscopy DM 2 last A1C: In June:6.8 hold metformin ISS continue to monitor HTN Stable Monitor DYSLIPIDEMIA continue statin DVT PROPHYLAXIS SQ Lovenox CODE STATUS FULL CODE Vital Signs: Date Time Temp Pulse Resp B/P Pulse Ox O2 Delivery O2 Flow Rate FiO2 10/15/16 16:00 Room Air 10/15/16 15:34 36.9 97 18 123/68 92 Room Air 10/15/16 14:06 87 18 90 Room Air 10/15/16 08:48 90 Room Air 10/15/16 08:12 37.3 101 16 142/80 90 Room Air 10/15/16 08:00 Room Air 10/15/16 07:14 88 20 93 Room Air 10/15/16 02:35 85 20 87 Room Air 10/15/16 00:18 37.0 87 20 157/92 91 2.0 10/15/16 00:01 98 Nasal Cannula 2.0 10/14/16 23:45 87 20 100 Nasal Cannula 2.0 10/14/16 22:00 37.4 91 18 105/65 95 Nasal Cannula 2.0 10/14/16 18:54 36.8 88 20 157/84 90 Room Air 10/14/16 18:19 87 20 176/94 93 10/14/16 17:56 87 20 176/94 93 Room Air Lab Results: Results Past 24 Hours Test 10/14/16 20:11 10/15/16 07:40 10/15/16 07:48 10/15/16 11:21 Range/Units Bedside Glucose 164 144 125 70-90 mg/dl White Blood Count 16.67 4.8-10.8 K/uL Red Blood Count 4.54 4.2-5.4 M/uL Hemoglobin 12.9 12.0-16.0 g/dL Hematocrit 39.1 37-47 % Mean Corpuscular Volume 86.1 80-100 fL Mean Corpuscular Hemoglobin 28.4 25-34 pg Mean Corpuscular Hemoglobin Concent 33.0 32-36 g/dl RDW Standard Deviation 43.1 36.4-46.3 fL RDW Coefficient of Variation 13.8 11.5-14.5 % Platelet Count 247 130-400 K/uL Mean Platelet Volume 11.6 7.4-10.4 fL Sodium Level 143 136-145 mmol/L Potassium Level 3.9 3.5-5.1 mmol/L Chloride Level 104 98-107 mmol/L Carbon Dioxide Level 26 21-32 mmol/L Anion Gap 13.0 3-11 mmol/L Blood Urea Nitrogen 19 7-18 mg/dl Creatinine 0.93 0.60-1.20 mg/dl Est Creatinine Clear Calc Drug Dose 63.2 ml/min Estimated GFR () 70.2 Estimated GFR (Non- 60.5 BUN/Creatinine Ratio 20.0 10-20 Random Glucose 138 70-99 mg/dl Estimated Average Glucose 154 mg/dl Hemoglobin A1c 7.0 4.5-5.6 % Calcium Level 9.1 8.5-10.1 mg/dl Test 10/15/16 16:14 Range/Units Bedside Glucose 122 70-90 mg/dl
[2016-10-15] MEDS: ALLOPURINOL 300 MG TAB PO SCH (20:33)
[2016-10-15] MEDS: ATORVASTATIN 20 MG TAB PO SCH (20:33)
[2016-10-15] MEDS: ENOXAPARIN 40 MG/0.4 ML SYR SQ SCH (20:57)
[2016-10-16] VITALS (8 sets, daily range): BP systolic 117–176; BP diastolic 70–78; PULSE 84–103; TEMP 36.5–37; O2SAT 90–93
[2016-10-16] MEDS: IPRATROPIUM BROMIDE NEB SOLN 0.02% 2.5 ML VIAL INH SCH ×3 (01:36→14:36)
[2016-10-16] MEDS: LEVALBUTEROL 1.25MG/0.5ML NEB INH SCH ×3 (01:36→14:36)
[2016-10-16] MEDS: INSULIN ASPART 100 UNITS/ML 3 ML PEN SC SCH ×4 (06:30→20:46)
[2016-10-16] MEDS: LACTOBACILLUS ACIDOPHILUS (FLORANEX) TAB PO SCH ×3 (06:49→15:49)
[2016-10-16] MEDS: GUAIFENESIN 600 MG TABCR PO SCH ×2 (06:50→19:17)
[2016-10-16] MEDS: BENZONATATE 100MG CAP PO SCH ×3 (06:50→19:16)
[2016-10-16] MEDS: SODIUM CHLORIDE 0.9% 1000ML 1,000 ML IV SCH (08:14)
[2016-10-16 08:36] LABS: BUN/CREATININE RATIO 17.9 (10-20); CALCIUM 8.9 mg/dl (8.5-10.1); CREATININE 0.8 mg/dl (0.60-1.20); POTASSIUM 3.7 mmol/L (3.5-5.1)
--- NOTE | 2016-10-16 10:46 | Medical Consult ---
Consultation Date of Consultation: Oct 16, 2016. Attending Physician: Juan Melissa MD History of Present Illness 76 yo female admitted for cough, dysphagia, odynophagia and dehydration. Patient states she started with a sore throat several days ago. Was seen at an urgent care facility where she was given Augmentin for "sinus infection." States that she took 3 days of the antibiotic but did not feel better, and was having difficulty swallowing the pill so came to the ED for evaluation. ED did a CT neck without contrast which was unremarkable other than some shoddy cervical adenopathy. Her imaged sinuses are normal. She does have prominent cervical osteophytes noted protruding anteriorly on the scan. Also had a CXR which showed bony overgrowth of a first rib and cardiomegaly. She denies any alleviating or exacerbating factors. She is not a smoker, quit in 1982. No history of alcohol use. States that today her swallowing seems much better. Throat is improved as well. She did fail a bedside swallow yesterday. Past Medical/Surgical History Medical Problems: (1) Bronchitis Status: Acute (2) Dehydration Status: Acute (3) Dysphagia Status: Acute (4) Fall Status: Acute (5) Laceration of left ear Status: Acute (6) Pharyngitis Status: Acute (7) Sinusitis Status: Acute Family History Patient reports no known family medical history. Social History Smoking Status: Unknown if Ever Smoked Alcohol Use: none Drug Use: none Marital Status: Housing Status: lives with significant other Occupation Status: retired Allergies Coded Allergies: Neomycin (Verified Allergy, Intermediate, SWELLING, REDNESS, 10/14/16) Nickel (Verified Allergy, Unknown, RASH, 10/14/16) Adhesives (Verified Adverse Reaction, Intermediate, SKIN IRRITATION, ) Corticosteroids (Verified Adverse Reaction, Intermediate, PAIN,TACHYCARDIA ,FEELING OF IMPENDING DOOM with oral steriod, 10/14/16) Current Inpatient Medications Current Inpatient Medications Medications (Trade) Dose Ordered Sig/Laila Route Start Time Stop Time Status Last Admin Dose Admin Enoxaparin Sodium (Lovenox Inj) 40 mg Q24H SQ 10/14/16 22:00 11/13/16 21:59 10/15/16 20:57 40 MG Acetaminophen (Tylenol Tab) 650 mg Q4H PRN PO 10/14/16 16:30 11/13/16 16:29 Ondansetron HCl 4 mg 4 mg Q6H PRN IV 10/14/16 16:30 11/13/16 16:29 Sodium Chloride (Nss 1000ml) 1,000 ml @ 80 mls/hr [id number] IV 10/14/16 19:45 11/13/16 19:44 10/16/16 08:14 80 MLS/HR Insulin Aspart (novoLOG ASPART) SLIDING SCALE If C... ACHS SC 10/14/16 21:00 11/13/16 20:59 10/14/16 20:56 1 UNITS Glucose (Glucose 40% Gel) 15-30 GRAMS 15 GRAMS... UD PRN PO 10/14/16 16:30 11/13/16 16:29 Glucose (Glucose Chew Tab) 4-8 Tablets 4 Tabl... UD PRN PO 10/14/16 16:30 11/13/16 16:29 Dextrose (Dextrose 50% 50ML Syringe) 25-50ML OF 50% DW IV FOR... UD PRN IV 10/14/16 16:30 11/13/16 16:29 Glucagon (Glucagon Inj) 1 mg UD PRN SQ 10/14/16 16:30 11/13/16 16:29 Lactobacillus Acidophilus (Floranex Tab) 4 tab TIDM PO 10/14/16 18:00 11/13/16 17:59 Miscellaneous (Iv Fluids Completed) 1 ea PRN PRN N/A 10/14/16 16:45 10/14/17 16:44 Benzonatate (Tessalon Perles Cap) 100 mg TID PO 10/14/16 21:00 11/13/16 20:59 10/14/16 20:54 100 MG Guaifenesin 600 mg 600 mg Q12 PO 10/14/16 21:00 11/13/16 20:59 Ceftriaxone Sodium 1 gm/ Dextrose 50 ml @ 100 mls/hr DAILY@1800 IV 10/15/16 18:00 10/21/16 17:59 10/15/16 17:46 100 MLS/HR Azithromycin/ Dextrose (Zithromax IV/D5 250ml) 252.5 ml @ 125 mls/hr DAILY@1600 IV 10/15/16 16:00 10/21/16 15:59 10/15/16 15:39 125 MLS/HR Albuterol/ Ipratropium (Duoneb) 3 ml Q4R PRN INH 10/14/16 16:45 11/13/16 16:44 Allopurinol (Zyloprim Tab) 300 mg HS PO 10/14/16 21:00 11/13/16 20:59 10/14/16 20:54 300 MG Atenolol (Tenormin Tab) 25 mg HS PO 10/14/16 21:00 11/13/16 20:59 Atorvastatin Calcium (Lipitor Tab) 40 mg HS PO 10/14/16 21:00 11/13/16 20:59 Guaifenesin (Robitussin Sugar Free Syrup) 100 mg Q6H PRN PO 10/14/16 21:15 11/13/16 21:14 10/14/16 21:36 100 MG Ipratropium Watkins (Atrovent 0.02% 0.5MG/2.5ML Neb) 0.5 mg Q6R INH 10/14/16 22:45 11/13/16 22:44 10/16/16 07:50 0.5 MG Levalbuterol (Xopenex 1.25MG/ 0.5ML Neb) 1.25 mg Q6R INH 10/14/16 22:45 11/13/16 22:44 10/16/16 07:50 1.25 MG Review of Systems Constitutional: No chills, No fatigue, No fever, No problem reported, No sweats , No weakness, No weight loss Eyes: No diplopia, No discharge, No eye pain, No problem reported, No redness, No worsening of vision ENT: + trouble swallowing Respiratory: + cough Cardiovascular: No PND, No chest pain, No claudication, No edema, No orthopnea , No palpitations, No problem reported Abdomen: No GI bleeding, No constipation, No diarrhea, No nausea, No pain, No problem reported, No vomiting Neurologic: No balance problems, No memory loss, No numbness/tingling, No paralysis, No problem reported, No vertigo, No weakness Hematologic / Lymphatic: No abnormal bleeding/bruising, No clotting problems, No night sweats, No problem reported, No swollen lymph nodes Physical Exam Date Time Temp Pulse Resp B/P Pulse Ox O2 Delivery O2 Flow Rate FiO2 2/2/17 08:22 36.5 97 20 147/78 92 Room Air 10/16/16 08:00 92 Room Air 10/16/16 07:50 96 18 92 Room Air 10/16/16 01:36 84 18 93 Room Air 10/16/16 00:04 36.7 88 18 117/70 90 Room Air 10/16/16 00:01 Room Air 10/15/16 19:56 85 18 93 Room Air 10/15/16 19:30 Room Air 10/15/16 16:00 Room Air 10/15/16 15:34 36.9 97 18 123/68 92 Room Air 10/15/16 14:06 87 18 90 Room Air PROCEDURE: Fiberoptic laryngoscopy was performed and revealed some mild arytenoid edema and some mild pooling of secretions. She has some erythema of the true cords as well. Vocal cord mobility was normal bilaterally. No masses or lesions. Post cricoid space with mass or lesions. Subglottis with some mild edema, but airway widely patent. Patient tolerated well. General Appearance: WD/WN, no apparent distress Head: normocephalic, atraumatic Eyes: PERRL, EOMI ENT: hearing grossly normal, + pertinent finding (Left cerumen impaction. 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, alert, oriented x 3 Skin: normal color, warm/dry Lymphatic: + cervical node abnormality Laboratory Results Last 24 Hours Test 10/15/16 11:21 10/15/16 16:14 10/15/16 20:19 10/16/16 07:35 Bedside Glucose 125 mg/dl 122 mg/dl 104 mg/dl 91 mg/dl Test 10/16/16 07:45 Sodium Level 144 mmol/L Potassium Level 3.7 mmol/L Chloride Level 107 mmol/L Carbon Dioxide Level 27 mmol/L Anion Gap 10.0 mmol/L Blood Urea Nitrogen 14 mg/dl Creatinine 0.80 mg/dl Est Creatinine Clear Calc Drug Dose 73.5 ml/min Estimated GFR () 84.2 Estimated GFR (Non- 72.6 BUN/Creatinine Ratio 17.9 Random Glucose 95 mg/dl Lactic Acid Level 0.8 mmol/L Calcium Level 8.9 mg/dl Procalcitonin 0.08 ng/mL Assessment & Plan 76 yo female with likely viral pharyngitis/laryngitis with some mild arytenoid edema - would consider checking for parainfluenza - she does not have sinusitis - continue antibiotic therapy per primary service - primary service could consider addition of steroids to help the mild edema - patient should follow up in my office in 1-2 weeks post discharge for recheck and to remove left sided cerumen - call with any questions.
--- NOTE | 2016-10-16 15:20 | Progress Note ---
Internal Med Progress Note Date of Service: Oct 16, 2016. Provider Documentation: SUBJECTIVE: Patient is seen and examined at bedside. She states she is able to swallow better and cough is improving. Voice is more clear today. Still feels sore throat. Denies any chest pain, SOB. OBJECTIVE: Vital Signs-as noted below General Appearance: WD/WN, no apparent distress, obese Head: normocephalic, atraumatic Eyes: normal inspection ENT: hearing grossly normal, + pharyngeal erythema Neck: supple, Trachea midline Respiratory/Chest: normal breath sounds, CTA Cardiovascular: regular rate, rhythm, no edema, no murmur Abdomen/GI: normal bowel sounds, non tender, soft Back: normal inspection Extremities/Musculoskelatal: normal inspection, no calf tenderness, 1+ pitting edema with venous stasis changes Neurologic/Psych: alert, normal mood/affect, oriented x 3 Skin: normal color, warm/dry Lab data as noted below. ASSESSMENT & PLAN: Patient is a 76 yr old female with PMHx of DM 2, HTN and Dyslipidemia presents with persistent cough for one week. Associated symptoms include sore throat, L ear pain and swollen glands for which she went to [facility] and was prescribed Augmentin which she could take only for 3 days secondary to trouble swallowing. She is afebrile but had leukocytosis. Neck CT: suggestive of reactive cervical adenitis. 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 and also has intolerance to steroids in the past Patient had leukocytosis but is afebrile CXR: No consolidation Influenza negative Will check for parainfluenza Blood and sputum cultures: No growth to date Continue Rocephin and Zithromax Duonebs PRN Lactic acid, Procalcitonin:wnl Will start on small dose of prednisone-patient agreeable decrease IV fluids Tolerating mechanical soft diet Needs Follow up with ENT in 1-2 weeks as outpatient DYSPHAGIA: secondary to above Neck CT: mild reactive cervical adenitis Improving VICK creatinine 1.3 at time of admission Resolved Will decrease IVF DM 2 last A1C: In June:6.8 hold metformin ISS continue to monitor HTN Will resume home meds Monitor DYSLIPIDEMIA continue statin DVT PROPHYLAXIS SQ Lovenox CODE STATUS FULL CODE Vital Signs: Date Time Temp Pulse Resp B/P Pulse Ox O2 Delivery O2 Flow Rate FiO2 10/16/16 14:36 86 18 93 Room Air 10/16/16 08:22 36.5 97 20 147/78 92 Room Air 10/16/16 08:00 92 Room Air 10/16/16 07:50 96 18 92 Room Air 10/16/16 01:36 84 18 93 Room Air 10/16/16 00:04 36.7 88 18 117/70 90 Room Air 10/16/16 00:01 Room Air 10/15/16 19:56 85 18 93 Room Air 10/15/16 19:30 Room Air 10/15/16 16:00 Room Air 10/15/16 15:34 36.9 97 18 123/68 92 Room Air Lab Results: Results Past 24 Hours Test 10/15/16 16:14 10/15/16 20:19 10/16/16 07:35 10/16/16 07:45 Range/Units Bedside Glucose 122 104 91 70-90 mg/dl Sodium Level 144 136-145 mmol/L Potassium Level 3.7 3.5-5.1 mmol/L Chloride Level 107 98-107 mmol/L Carbon Dioxide Level 27 21-32 mmol/L Anion Gap 10.0 3-11 mmol/L Blood Urea Nitrogen 14 7-18 mg/dl Creatinine 0.80 0.60-1.20 mg/dl Est Creatinine Clear Calc Drug Dose 73.5 ml/min Estimated GFR () 84.2 Estimated GFR (Non- 72.6 BUN/Creatinine Ratio 17.9 10-20 Random Glucose 95 70-99 mg/dl Lactic Acid Level 0.8 0.4-2.0 mmol/L Calcium Level 8.9 8.5-10.1 mg/dl Procalcitonin 0.08 0-0.5 ng/mL Test 10/16/16 11:28 Range/Units Bedside Glucose 110 70-90 mg/dl
[2016-10-16] MEDS: AZITHROMYCIN IV 250 MG in DEXTROSE 5% 250ML 250 ML IV SCH (16:14)
[2016-10-16] MEDS: CEFTRIAXONE SOD INJ 1 GM in DEXTROSE 5% ADD-VANTAGE 50ML 50 ML IV SCH (18:24)
[2016-10-16] MEDS: GUAIFENESIN SUGAR FREE 100 MG/5 ML UDC PO PRN (19:16)
[2016-10-16] MEDS: ATORVASTATIN 20 MG TAB PO SCH (19:17)
[2016-10-16] MEDS: ALLOPURINOL 300 MG TAB PO SCH (19:18)
[2016-10-16] MEDS: ENOXAPARIN 40 MG/0.4 ML SYR SQ SCH (21:13)
[2016-10-17 00:02] VITALS: BP 110/62; PULSE 84; TEMP 36.7; O2SAT 90
[2016-10-17 07:30] LABS: BASO % 0.1 %; BASO ABS # 0.01 K/uL (0-0.2); COMPLETE YES; EOS % 0.7 %; HEMATOCRIT 33.4 % (37-47); LYMPH % 17.3 %; LYMPH ABS # 1.67 K/uL (1.2-3.4); MEAN CELL VOLUME 86.3 fL (80-100); MEAN CORPUSCULAR HEMOGLOBIN 28.7 pg (25-34); MEAN CORPUSCULAR HGB CONC 33.2 g/dl (32-36); MEAN PLATELET VOLUME 11.4 fL (7.4-10.4); MONO % 6.3 %; NEUT % 74.6 %; PLATELET COUNT 216 K/uL (130-400); RED BLOOD COUNT 3.87 M/uL (4.2-5.4); WHITE BLOOD COUNT 9.63 K/uL (4.8-10.8)
[2016-10-17 08:03] VITALS: BP 154/96; PULSE 84; TEMP 36.8; O2SAT 94
[2016-10-17 08:07] VITALS: O2SAT 94
[2016-10-17 08:19] LABS: BUN/CREATININE RATIO 15.9 (10-20); CALCIUM 8.2 mg/dl (8.5-10.1); CREATININE 0.76 mg/dl (0.60-1.20); POTASSIUM 3.8 mmol/L (3.5-5.1)
[2016-10-17] MEDS: GUAIFENESIN 600 MG TABCR PO SCH ×2 (08:30→20:43)
[2016-10-17] MEDS: OLMESARTAN MEDOXOMIL 40 MG TAB PO SCH (08:31)
[2016-10-17] MEDS: LACTOBACILLUS ACIDOPHILUS (FLORANEX) TAB PO SCH ×3 (08:31→18:24)
[2016-10-17] MEDS: HYDROCHLOROTHIAZIDE 25 MG TAB PO SCH (08:32)
[2016-10-17] MEDS: BENZONATATE 100MG CAP PO SCH ×3 (08:32→20:44)
[2016-10-17] MEDS: INSULIN ASPART 100 UNITS/ML 3 ML PEN SC SCH ×4 (08:42→20:44)
[2016-10-17] MEDS ORDERED: NON-FORMULARY MEDICATION (Olmesartan/Hctz (Benicar Hct 40/25) 1 TAB) PO SCH (09:00)
[2016-10-17 15:02] VITALS: BP 132/77; PULSE 77; TEMP 37; O2SAT 91
[2016-10-17] MEDS: AZITHROMYCIN IV 250 MG in DEXTROSE 5% 250ML 250 ML IV SCH (16:52)
--- NOTE | 2016-10-17 19:58 | Progress Note ---
Internal Med Progress Note Date of Service: Oct 17, 2016. Provider Documentation: SUBJECTIVE: Patient is seen and examined at bedside. Clinically continues to improve symptomatically. Tolerating diet, sore throat improving. No new symptoms OBJECTIVE: Vital Signs-as noted below General Appearance: WD/WN, no apparent distress, obese Head: normocephalic, atraumatic Eyes: normal inspection ENT: hearing grossly normal, + pharyngeal erythema Neck: supple, Trachea midline Respiratory/Chest: normal breath sounds, CTA Cardiovascular: regular rate, rhythm, no edema, no murmur Abdomen/GI: normal bowel sounds, non tender, soft Back: normal inspection Extremities/Musculoskelatal: normal inspection, no calf tenderness, 1+ pitting edema with venous stasis changes Neurologic/Psych: alert, normal mood/affect, oriented x 3 Skin: normal color, warm/dry Lab data as noted below. ASSESSMENT & PLAN: Patient is a 76 yr old female with PMHx of DM 2, HTN and Dyslipidemia presents with persistent cough for one week. Associated symptoms include sore throat, L ear pain and swollen glands for which she went to [facility] and was prescribed Augmentin which she could take only for 3 days secondary to trouble swallowing. She is afebrile but had leukocytosis. Neck CT: suggestive of reactive cervical adenitis. 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 and also has intolerance to steroids in the past leukocytosis resolved CXR: No consolidation Influenza negative Will check for parainfluenza-pending Blood and sputum cultures: No growth to date Continue Rocephin and Zithromax Duonebs PRN Lactic acid, Procalcitonin:wnl Continue prednisone DC IV fluids Tolerating regular diet Needs Follow up with ENT in 1-2 weeks as outpatient DYSPHAGIA: secondary to above Neck CT: mild reactive cervical adenitis Improving VICK creatinine 1.3 at time of admission Resolved DC IVF DM 2 last A1C: In June:6.8 hold metformin ISS continue to monitor HTN Will resume home meds Monitor DYSLIPIDEMIA continue statin DVT PROPHYLAXIS SQ Lovenox CODE STATUS FULL CODE Disposition: Plan to discharge tomorrow if stable Vital Signs: Date Time Temp Pulse Resp B/P Pulse Ox O2 Delivery O2 Flow Rate FiO2 10/17/16 19:34 Room Air 10/17/16 15:02 37.0 77 20 132/77 91 Room Air 10/17/16 08:07 94 Room Air 10/17/16 08:03 36.8 84 16 154/96 94 Room Air 10/17/16 07:42 Room Air 10/17/16 00:02 36.7 84 18 110/62 90 Room Air 10/17/16 00:01 Room Air 10/16/16 20:00 Room Air Lab Results: Results Past 24 Hours Test 10/16/16 20:14 10/17/16 06:56 10/17/16 07:26 10/17/16 11:27 Range/Units Bedside Glucose 128 94 118 70-90 mg/dl White Blood Count 9.63 4.8-10.8 K/uL Red Blood Count 3.87 4.2-5.4 M/uL Hemoglobin 11.1 12.0-16.0 g/dL Hematocrit 33.4 37-47 % Mean Corpuscular Volume 86.3 80-100 fL Mean Corpuscular Hemoglobin 28.7 25-34 pg Mean Corpuscular Hemoglobin Concent 33.2 32-36 g/dl Platelet Count 216 130-400 K/uL Mean Platelet Volume 11.4 7.4-10.4 fL Neutrophils (%) (Auto) 74.6 % Lymphocytes (%) (Auto) 17.3 % Monocytes (%) (Auto) 6.3 % Eosinophils (%) (Auto) 0.7 % Basophils (%) (Auto) 0.1 % Neutrophils # (Auto) 7.17 1.4-6.5 K/uL Lymphocytes # (Auto) 1.67 1.2-3.4 K/uL Monocytes # (Auto) 0.61 0.11-0.59 K/uL Eosinophils # (Auto) 0.07 0-0.5 K/uL Basophils # (Auto) 0.01 0-0.2 K/uL RDW Standard Deviation 43.4 36.4-46.3 fL RDW Coefficient of Variation 13.8 11.5-14.5 % Immature Granulocyte % (Auto) 1.0 % Immature Granulocyte # (Auto) 0.10 0.00-0.02 K/uL Sodium Level 144 136-145 mmol/L Potassium Level 3.8 3.5-5.1 mmol/L Chloride Level 108 98-107 mmol/L Carbon Dioxide Level 26 21-32 mmol/L Anion Gap 10.0 3-11 mmol/L Blood Urea Nitrogen 12 7-18 mg/dl Creatinine 0.76 0.60-1.20 mg/dl Est Creatinine Clear Calc Drug Dose 77.4 ml/min Estimated GFR () 89.6 Estimated GFR (Non- 77.3 BUN/Creatinine Ratio 15.9 10-20 Random Glucose 90 70-99 mg/dl Calcium Level 8.2 8.5-10.1 mg/dl Test 10/17/16 16:29 Range/Units Bedside Glucose 113 70-90 mg/dl
[2016-10-17] MEDS: CEFTRIAXONE SOD INJ 1 GM in DEXTROSE 5% ADD-VANTAGE 50ML 50 ML IV SCH (20:37)
[2016-10-17] MEDS: ATORVASTATIN 20 MG TAB PO SCH (20:43)
[2016-10-17] MEDS: ALLOPURINOL 300 MG TAB PO SCH (20:44)
[2016-10-17] MEDS: ENOXAPARIN 40 MG/0.4 ML SYR SQ SCH (20:53)
[2016-10-18] VITALS: O2SAT 94
[2016-10-18 00:21] VITALS: BP 120/74; PULSE 83; TEMP 36.8; O2SAT 92
[2016-10-18 07:08] LABS: BASO % 0.3 %; BASO ABS # 0.03 K/uL (0-0.2); COMPLETE YES; EOS % 2.4 %; HEMATOCRIT 35.1 % (37-47); IG% 0.8 %; LYMPH % 27.3 %; LYMPH ABS # 2.49 K/uL (1.2-3.4); MEAN CELL VOLUME 86.5 fL (80-100); MEAN CORPUSCULAR HEMOGLOBIN 28.6 pg (25-34); MEAN PLATELET VOLUME 11.2 fL (7.4-10.4); MONO % 7.2 %; PLATELET COUNT 214 K/uL (130-400); RED BLOOD COUNT 4.06 M/uL (4.2-5.4); WHITE BLOOD COUNT 9.13 K/uL (4.8-10.8)
[2016-10-18 07:34] VITALS: BP 150/83; PULSE 77; TEMP 36.9; O2SAT 93
[2016-10-18 07:36] LABS: BUN/CREATININE RATIO 16.2 (10-20); CREATININE 0.82 mg/dl (0.60-1.20); POTASSIUM 3.7 mmol/L (3.5-5.1)
[2016-10-18] MEDS: GUAIFENESIN 600 MG TABCR PO SCH (08:01)
[2016-10-18] MEDS: HYDROCHLOROTHIAZIDE 25 MG TAB PO SCH (08:01)
[2016-10-18] MEDS: OLMESARTAN MEDOXOMIL 40 MG TAB PO SCH (08:01)
[2016-10-18] MEDS: BENZONATATE 100MG CAP PO SCH (08:02)
[2016-10-18] MEDS: LACTOBACILLUS ACIDOPHILUS (FLORANEX) TAB PO SCH ×2 (08:03→12:00)
[2016-10-18] MEDS: INSULIN ASPART 100 UNITS/ML 3 ML PEN SC SCH ×2 (08:17→12:24)
--- NOTE | 2016-10-18 11:39 | Progress Note ---
Internal Med Progress Note Date of Service: Oct 18, 2016. Provider Documentation: SUBJECTIVE: Patient is seen and examined at bedside. Cough, sore throat continues to improve. Dysphagia resolved. No new symptoms OBJECTIVE: Vital Signs-as noted below General Appearance: WD/WN, no apparent distress, obese Head: normocephalic, atraumatic Eyes: normal inspection ENT: hearing grossly normal, + pharyngeal erythema Neck: supple, Trachea midline Respiratory/Chest: normal breath sounds, CTA Cardiovascular: regular rate, rhythm, no edema, no murmur Abdomen/GI: normal bowel sounds, non tender, soft Back: normal inspection Extremities/Musculoskelatal: normal inspection, no calf tenderness, 1+ pitting edema with venous stasis changes Neurologic/Psych: alert, normal mood/affect, oriented x 3 Skin: normal color, warm/dry Lab data as noted below. ASSESSMENT & PLAN: Patient is a 76 yr old female with PMHx of DM 2, HTN and Dyslipidemia presents with persistent cough for one week. Associated symptoms include sore throat, L ear pain and swollen glands for which she went to [facility] and was prescribed Augmentin which she could take only for 3 days secondary to trouble swallowing. She is afebrile but had leukocytosis. Neck CT: suggestive of reactive cervical adenitis. 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 and also has intolerance to steroids in the past leukocytosis resolved CXR: No consolidation Influenza negative parainfluenza, PCR-pending Blood and sputum cultures: No growth to date Continue Rocephin and Zithromax >>> will switch to PO Augmentin Duonebs PRN Lactic acid, Procalcitonin:wnl Continue prednisone taper DC IV fluids Tolerating regular diet Needs Follow up with ENT in 1-2 weeks as outpatient DYSPHAGIA: secondary to above Neck CT: mild reactive cervical adenitis Resolved VICK creatinine 1.3 at time of admission Resolved DC IVF DM 2 last A1C: In June:6.8 hold metformin ISS continue to monitor HTN Will resume home meds Monitor DYSLIPIDEMIA continue statin DVT PROPHYLAXIS SQ Lovenox CODE STATUS FULL CODE Disposition: Plan to discharge home today. Vital Signs: Date Time Temp Pulse Resp B/P Pulse Ox O2 Delivery O2 Flow Rate FiO2 10/18/16 07:43 Room Air 10/18/16 07:34 36.9 77 20 150/83 93 Room Air 10/18/16 00:21 36.8 83 18 120/74 92 Room Air 10/18/16 00:00 94 Room Air 10/17/16 19:34 Room Air 10/17/16 15:02 37.0 77 20 132/77 91 Room Air Lab Results: Results Past 24 Hours Test 10/17/16 16:29 10/17/16 20:34 10/18/16 06:42 10/18/16 08:06 Range/Units Bedside Glucose 113 108 88 70-90 mg/dl White Blood Count 9.13 4.8-10.8 K/uL Red Blood Count 4.06 4.2-5.4 M/uL Hemoglobin 11.6 12.0-16.0 g/dL Hematocrit 35.1 37-47 % Mean Corpuscular Volume 86.5 80-100 fL Mean Corpuscular Hemoglobin 28.6 25-34 pg Mean Corpuscular Hemoglobin Concent 33.0 32-36 g/dl Platelet Count 214 130-400 K/uL Mean Platelet Volume 11.2 7.4-10.4 fL Neutrophils (%) (Auto) 62.0 % Lymphocytes (%) (Auto) 27.3 % Monocytes (%) (Auto) 7.2 % Eosinophils (%) (Auto) 2.4 % Basophils (%) (Auto) 0.3 % Neutrophils # (Auto) 5.66 1.4-6.5 K/uL Lymphocytes # (Auto) 2.49 1.2-3.4 K/uL Monocytes # (Auto) 0.66 0.11-0.59 K/uL Eosinophils # (Auto) 0.22 0-0.5 K/uL Basophils # (Auto) 0.03 0-0.2 K/uL RDW Standard Deviation 43.3 36.4-46.3 fL RDW Coefficient of Variation 13.7 11.5-14.5 % Immature Granulocyte % (Auto) 0.8 % Immature Granulocyte # (Auto) 0.07 0.00-0.02 K/uL Sodium Level 144 136-145 mmol/L Potassium Level 3.7 3.5-5.1 mmol/L Chloride Level 105 98-107 mmol/L Carbon Dioxide Level 31 21-32 mmol/L Anion Gap 8.0 3-11 mmol/L Blood Urea Nitrogen 13 7-18 mg/dl Creatinine 0.82 0.60-1.20 mg/dl Est Creatinine Clear Calc Drug Dose 71.7 ml/min Estimated GFR () 81.7 Estimated GFR (Non- 70.5 BUN/Creatinine Ratio 16.2 10-20 Random Glucose 93 70-99 mg/dl Calcium Level 9.0 8.5-10.1 mg/dl
[2016-10-18] MEDS ORDERED: AMOX500T PO ×2 (11:47)
[2016-10-18] MEDS ORDERED: BENZ100C7 PO ×2 (11:47)
[2016-10-18] MEDS ORDERED: PRD20 PO ×2 (11:47)
--- NOTE | 2016-10-18 11:52 | Discharge Instructions ---
Discharge Instructions Admission Reason for Admission: Cough,Dehydration,Dysphagia Discharge Discharge Diagnosis / Problem: PHARYNGITIS/LARYNGITIS- Likely Viral in Origin Discharge Goals Goal(s): Decrease discomfort, Improve function Activity Recommendations Activity Limitations: resume your previous activity Exercise/Sports Limitations: as tolerated . Instructions / Follow-Up Instructions / Follow-Up Follow up with on 10/22/16 at 11:00AM Follow up with (ENT) in 1 week: Please call for appointment Complete the antibiotic and steroid course as prescribed Seek immediate medical attention if your symptoms reoccur or worsen. Current Hospital Diet Patient's current hospital diet: Diabetes Type 2 Diet Discharge Diet Recommended Diet: Diabetes Type 2 Diet Pending Studies Studies pending at discharge: yes List of pending studies: PCR Parainfluenza Laboratory Results Hemoglobin A1c Test 10/15/16 07:48 Range/Units Estimated Average Glucose 154 mg/dl Hemoglobin A1c 7.0 H 4.5-5.6 % Medical Emergencies . Who to Call and When: Medical Emergencies: If at any time you feel your situation is an emergency, please call 911 immediately. . Non-Emergent Contact Non-Emergency issues call your: Primary Care Provider Call Non-Emergent contact if: you have a fever, your pain is worsening, you have any medication questions . . "Provider Documentation" section prepared by Juan Melissa. VTE Core Measure Inpt VTE Proph given/why not?: Enoxaparin (Lovenox)SQ
[2016-10-18 13:06] VITALS: BP 150/83; PULSE 77; TEMP 36.9; O2SAT 93
--- NOTE | 2016-10-18 19:34 | Discharge Summary ---
Discharge Summary Admission Date: Oct 15, 2016 at 14:36 Discharge Date: Oct 18, 2016 Discharge Disposition: Home Principal Diagnosis: PHARYNGITIS/LARYNGITIS- Likely Viral in Origin Procedures: Laryngoscopy: Fiberoptic laryngoscopy was performed and revealed some mild arytenoid edema and some mild pooling of secretions. She has some erythema of the true cords as well. Vocal cord mobility was normal bilaterally. No masses or lesions. Post cricoid space with mass or lesions. Subglottis with some mild edema, but airway widely patent. Patient tolerated well. CXR: 1. Left upper lung zone density, possibly representing a summation. A follow-up PA and lateral study with obliques is recommended. 2. No evidence of acute parenchymal consolidation CT neck: 1. A marker placed over the clinically palpable nodularity of the right submandibular region shows the nodule to represent the right submandibular gland. 2. Mild reactive cervical adenitis. 3. Study is otherwise negative. Consultations: Otolaryngology Pending Studies/Follow-Up: Follow up with on 10/22/16 at 11:00AM Follow up with (ENT) in 1 week: Please call for appointment Complete the antibiotic and steroid course as prescribed Seek immediate medical attention if your symptoms reoccur or worsen. PCR for Parainfluenza: pending Medication Reconciliation New Medications: Amoxicillin & Pot Clavulanate (Augmentin 500MG) 1 Tab Tab 500 MG PO Q8H for 5 Days, #15 TAB Benzonatate (Benzonatate) 100 Mg Cap 100 MG PO TID for 5 Days, #15 CAP Prednisone (Prednisone) 20 Mg Tab 10 MG PO DAILY for 3 Days, #3 TAB Continued Medications: Allopurinol (Allopurinol) 300 Mg Tab 300 MG PO HS Atenolol (Tenormin) 25 Mg Tab 25 MG PO HS, 0 Refills Atorvastatin (Lipitor) 40 Mg Tab 40 MG PO HS, TAB Coenzyme Q10 (Ubidecarenone) (Co-Enzyme Q10) 200 Mg Cap 200 MG PO DAILY Metformin Hcl (Glucophage) 500 Mg Tab 1000 MG PO BID, TAB Olmesartan/Hctz (Benicar Hct 40/25) 1 Ea Tab 1 TAB PO DAILY, TAB Admission Information HPI (per Admitting provider): This is a 76 y/o female with PMHx of DM 2, HTN and Dyslipidemia who presents to the ED c/o persistent cough for one week. Pt reports that 1 week ago she developed a cough that is productive of clear sputum. Sxs are assoc with congestion, sore throat, L ear pain and swollen glands. Pt was seen at [facility] a few days ago where she was prescribed a 10-day course of Augmentin for suspected sinus infection. Pt has been having trouble taking the medication due to her sore throat. Her sxs have continued to worsen. She has been trying steam therapy and salt water gargles with only temporary relief. Last night her cough was so bad that she felt very short of breath which scared her. This morning she was having more problems with swallowing and felt like "something was stuck" in her throat. Pt has not been able to eat or drink due to sore throat/difficulty swallowing. Her last meal was yesterday morning and she has not taken any of her scheduled medications today. Pt denies fever/chills, diaphoresis, chest pain, palpitations, abd pain, N/V, bowel or bladder issues, LE edema ,calf pain, lightheadedness/dizziness. In the ED, patient was hypertensive on arrival. She is afebrile with leukocytosis >12k. creat 1.3. negative flu. Neck CT reactive cerv nodes; no masses. CXR PALOMO density; no consolidation. Pt received IVF and abx in the ED. She will be admitted for further evaluation and treatment. Physical Exam (per Admitting): General Appearance: WD/WN, no apparent distress, + obese, + pertinent finding (Pt is sitting up on edge of bed with at bedside ) Head: normocephalic, atraumatic Eyes: normal inspection ENT: hearing grossly normal, + pharyngeal erythema, + pertinent finding (R TM pearly sim; L TM completely obscured due to cerumen impaction) Neck: supple Respiratory/Chest: chest non-tender, lungs clear, normal breath sounds, no respiratory distress, + pertinent finding (no wheezing or crackles noted ) Cardiovascular: regular rate, rhythm, no edema, no murmur Abdomen/GI: normal bowel sounds, non tender, soft Back: normal inspection Extremities/Musculoskelatal: normal inspection, no calf tenderness, + pertinent finding (1+ pitting edema with venous stasis skin changes to bilat LE) Neurologic/Psych: alert, normal mood/affect, oriented x 3 Skin: normal color, warm/dry Lymphatic: no adenopathy Hospital Course Patient is a 76 yr old female with PMHx of DM 2, HTN and Dyslipidemia presents with persistent cough for one week. Associated symptoms include sore throat, L ear pain and swollen glands [facility] which [facility] and was prescribed Augmentin which she could take only for 3 days secondary to trouble swallowing. She is afebrile but had leukocytosis. Neck CT: suggestive of reactive cervical adenitis. 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 and also has intolerance to steroids in the past leukocytosis resolved CXR: No consolidation Influenza negative parainfluenza, PCR-pending Blood and sputum cultures: No growth to date Continue Rocephin and Zithromax >>> will switch to PO Augmentin Duonebs PRN Lactic acid, Procalcitonin:wnl Continue prednisone taper DC IV fluids Tolerating regular diet Needs Follow up with ENT in 1-2 weeks as outpatient DYSPHAGIA: secondary to above Neck CT: mild reactive cervical adenitis Resolved VICK creatinine 1.3 at time of admission Resolved DC IVF DM 2 last A1C: In June:6.8 hold metformin ISS continue to monitor HTN Will resume home meds Monitor DYSLIPIDEMIA continue statin DVT PROPHYLAXIS SQ Lovenox CODE STATUS FULL CODE Disposition: Plan to discharge home today. Total time spent on discharge = This includes examination of the patient, discharge planning, medication reconciliation, and communication with other providers. Discharge Instructions Discharge Instructions Admission Reason for Admission: Cough,Dehydration,Dysphagia Discharge Discharge Diagnosis / Problem: PHARYNGITIS/LARYNGITIS- Likely Viral in Origin Discharge Goals Goal(s): Decrease discomfort, Improve function Activity Recommendations Activity Limitations: resume your previous activity Exercise/Sports Limitations: as tolerated . Instructions / Follow-Up Instructions / Follow-Up Follow up with on 10/22/16 at 11:00AM Follow up with (ENT) in 1 week: Please call for appointment Complete the antibiotic and steroid course as prescribed Seek immediate medical attention if your symptoms reoccur or worsen. Current Hospital Diet Patient's current hospital diet: Diabetes Type 2 Diet Discharge Diet Recommended Diet: Diabetes Type 2 Diet Pending Studies Studies pending at discharge: yes List of pending studies: PCR Parainfluenza Laboratory Results Hemoglobin A1c Test 10/15/16 07:48 Range/Units Estimated Average Glucose 154 mg/dl Hemoglobin A1c 7.0 H 4.5-5.6 % Medical Emergencies . Who to Call and When: Medical Emergencies: If at any time you feel your situation is an emergency, please call 911 immediately. . Non-Emergent Contact Non-Emergency issues call your: Primary Care Provider Call Non-Emergent contact if: you have a fever, your pain is worsening, you have any medication questions . . "Provider Documentation" section prepared by Juan Melissa. VTE Core Measure Inpt VTE Proph given/why not?: Enoxaparin (Lovenox)SQ
[2016-10-26 18:43] LABS: PARAINFLUENZA RNA 1 NOT DETECTED; PARAINFLUENZA RNA 2 NOT DETECTED; PARAINFLUENZA RNA 3 NOT DETECTED; PARAINFLUENZA RNA 4 NOT DETECTED; PARAINFLUENZA SOURCE NASOPHARYNGEAL
[2017-02-06] MEDS ORDERED: METF-384 PO (11:57)
[2017-02-06] MEDS ORDERED: PRLSR20 PO (11:57)
== END 2016-10-18 13:37 | disposition home or self-care (01) | DRG 153 ==
LOC: ENRESERVDT → ENRESERVTM → C.EDB 11:47 → C.MS2W 16:36 → OBSVTOIN 10-15 14:36
PROVIDERS: ADMIT Internal Medicine; ATTEND Internal Medicine
PROC: 0CJS8ZZ Inspection of Larynx, Via Natural or Artificial Opening Endoscopic (ICD-10-PCS; principal; 2016-10-16)
DX: J02.8 Acute pharyngitis due to other specified organisms (principal); J04.0 Acute laryngitis; N17.9 Acute kidney failure, unspecified; E11.9 Type 2 diabetes mellitus without complications; L04.0 Acute lymphadenitis of face, head and neck; E78.5 Hyperlipidemia, unspecified; I10 Essential (primary) hypertension; E86.0 Dehydration; Z87.891 Personal history of nicotine dependence; Z79.899 Other long term (current) drug therapy; J32.9 Chronic sinusitis, unspecified; Z79.84 Long term (current) use of oral hypoglycemic drugs

== ENCOUNTER → 2017-02-11 | Day surgery (SDC) | payer BC ==
[2017-02-06 11:58] VITALS: Ht 160 cm; Wt 111.4 kg
[~2017-02-11] VITALS: Ht 160 cm; Wt 111.4 kg
[~2017-02-11] MED LIST changes: +BNC/4025 PO; -BNC4025 PO; -CLBCRM30 EXT; +COEN200C17 PO; -COEN200C4 PO; -GLC500 PO; +METF-384 PO; +PRLSR20 PO; +PROPOFOL IV EMULSION 10 MG/ML 20 ML VIAL IV ONE; +SODIUM CHLORIDE 0.9% 500ML 500 ML IV ONE
--- NOTE | 2017-02-11 09:42 | Endo History and Physical ---
History & Physical Date of Service: February 11, 2017. Chief Complaint: IBS Referring Physician: Dr. 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 Past Medical History Diabetes, Arthritis, High Cholesterol, Hypertension, Thyroid Disease Past Surgical History Hx Cardiac Surgery: No Hx Internal Defibrillator: No Hx Pacemaker: No Hx Abdominal Surgery: Yes ([facility] BSO) Hx of Implantable Prosthesis: No Hx Post-Op Nausea and Vomiting: No Hx Cancer Surgery: Yes (BCC REMOVAL) Hx Thoracic Surgery: No Hx Orthopedic: Yes (CERVICAL SPINAL LAMINECTOMY (L/R SLIGHTLY LIMITED ROM), RT SHOULDER SURGERY) Hx Urinary Tract Surgery: No Family History Colon CA Social History Smoking Status: Former Smoker Hx Substance Use: No Hx Alcohol Use: No Allergies Coded Allergies: Neomycin (Verified Allergy, Intermediate, SWELLING, REDNESS, 02/06/17) Nickel (Verified Allergy, Unknown, RASH, 02/06/17) Adhesives (Verified Adverse Reaction, Intermediate, SKIN IRRITATION, ) Corticosteroids (Verified Adverse Reaction, Intermediate, PAIN,TACHYCARDIA ,FEELING OF IMPENDING DOOM with oral steriod, 02/06/17) Current Medications Reported Home Medications Medications Dose Route/Sig Max Daily Dose Days Date Category Prilosec (Omeprazole) 20 Mg Capcr 20 Mg PO QPM 02/06/17 Reported Glucophage (Metformin Hcl) 1,000 Mg Tab 1,000 Mg PO BID 02/06/17 Reported Co-Enzyme Q10 (Coenzyme Q10 (Ubidecarenone)) 200 Mg Cap 200 Mg PO NOON 10/14/16 Reported Allopurinol 300 Mg Tab 300 Mg PO HS 10/14/16 Reported Benicar Hct 40/25 (Olmesartan/Hctz) 1 Ea Tab 1 Tab PO QAM 10/14/16 Reported Lipitor (Atorvastatin Calcium) 40 Mg Tab 40 Mg PO HS 02/14/15 Reported Tenormin (Atenolol) 25 Mg Tab 25 Mg PO HS 03/01/08 Reported Vital Signs Weight (Kilograms): 111.36 Height (Feet): 5 Height (Inches): 3 Date Time Temp Pulse Resp B/P Pulse Ox O2 Delivery O2 Flow Rate FiO2 02/11/17 09:25 36.6 78 18 179/74 96 Room Air Physical Exam General Appearance: WD/WN, no apparent distress Assessment and Plan colonoscopy today
--- NOTE | 2017-02-11 10:19 | Discharge Instructions ---
Endoscopy Patient Instructions Date / Procedure(s) Performed February 11, 2017. Colonoscopy Allergy Information Coded Allergies: Neomycin (Verified Allergy, Intermediate, SWELLING, REDNESS, 02/06/17) Nickel (Verified Allergy, Unknown, RASH, 02/06/17) Adhesives (Verified Adverse Reaction, Intermediate, SKIN IRRITATION, ) Corticosteroids (Verified Adverse Reaction, Intermediate, PAIN,TACHYCARDIA ,FEELING OF IMPENDING DOOM with oral steriod, 02/06/17) Discharge Date / Findings February 11, 2017. small polyp; otherwise normal Medication Instructions Stopped Medication(s): last dose Metformin 02/08 at 2000 Restart Stopped Medication(s): OK to resume all medications as above Provider Instructions Activity Restrictions - No exercising or heavy lifting for 24 hours. - Do not drink alcohol the day of the procedure. - Do not drive a car or operate machinery until the day after the procedure. - Do not make any important decisions or sign important papers in 24 hours after the procedure. Following Day: - Return to full activity which may include returning to work/school. Diet Start your diet with liquids and light foods (jello, soup, juice, toast). Then eat your usual diet if not nauseated. Treatment For Common After Affects For mild abdominal pain, bloating, or excessive gas: - Rest - Eat lightly - Lie on right side Follow-Up Information Follow-up with Dr. Lissette Mccormick as scheduled Anesthesia Information What You Should Know You have had a procedure that required some medicine to reduce anxiety and discomfort. This treatment is called moderate sedation. After receiving the treatment, you may be sleepy, but you will be able to breathe on your own. The effects of the treatment may last for several hours. Follow these instructions along with Activity/Diet recommendations noted above: * Do NOT do anything where dizziness or clumsiness would be dangerous. * Rest quietly at home today, then you can be up and about tomorrow. * Have a responsible person stay with you the rest of today. * You may have had an I.V. today. If so, you may take the dressing off later today. Recommendations Call your doctor if: * Trouble breathing * Continuous vomiting for more than 24 hours * Temperature above 101 degrees * Severe abdominal pain or bloating * Pain not relieved by pain medicine ordered * There is increased drainage or redness from any incision * A large amount of rectal bleeding greater than 2-3 tablespoons. (If you had a polyp/s removed or have hemorrhoids, a small amount of blood - from the rectum is to be expected.) * You have any unanswered questions or concerns. IN THE EVENT OF A SERIOUS EMERGENCY, GO TO THE NEAREST EMERGENCY ROOM Your discharge instructions were prepared by provider Yolanda Bonner. Patient Instructions Signature Page Keyanna Batres Patient (or Guardian) Signature/Date: I have read and understand the instructions given to me by my caregivers. Caregiver/RN/Doctor Signature/Date: The above-named patient and/or guardian has received patient instructions on this date. + Original Patient Signature Page (only) stays with chart. Please make copy for patient.
[2017-02-11 10:47] VITALS: BP 144/61; PULSE 74; O2SAT 94
--- NOTE | 2017-02-11 10:58 | GI REPORT ---
Procedure Date: 02/11/2017 9:54 AM Procedure: Colonoscopy Indications: Rectovaginal fistula Medicines: Propofol per Anesthesia Complications: No immediate complications. Estimated blood loss: Minimal. Estimated Blood Loss: Estimated blood loss was minimal. Procedure: Pre-Anesthesia Assessment: - Prior to the procedure, a History and Physical was performed, and patient medications, allergies and sensitivities were reviewed. The patient's tolerance of previous anesthesia was reviewed. - The risks and benefits of the procedure and the sedation options and risks were discussed with the patient. All questions were answered and informed consent was obtained. - Patient identification and proposed procedure were verified prior to the procedure by the physician and the nurse. The procedure was verified in the pre-procedure area in the procedure room. - Mental Status Examination: alert and oriented. Airway Examination: normal oropharyngeal airway and neck mobility. Respiratory Examination: clear to auscultation. CV Examination: normal. Abdominal Examination: bowel sounds present, abdomen soft and non-tender, no masses or organomegaly noted. - ASA Grade Assessment: III - A patient with severe systemic disease. After I obtained informed consent, the scope was passed under direct vision. Throughout the procedure, the patient's blood pressure, pulse, and oxygen saturations were monitored continuously. The On-site loaner was introduced through the anus and advanced to the terminal ileum. The colonoscopy was performed without difficulty. The patient tolerated the procedure well. The quality of the bowel preparation was good. Findings: The perianal and digital rectal examinations were normal. Pertinent negatives include normal sphincter tone and no palpable rectal lesions. The terminal ileum appeared normal. A 4 mm polyp was found in the ascending colon. The polyp was sessile. The polyp was removed with a cold snare. Resection and retrieval were complete. Verification of patient identification for the specimen was done by the physician and nurse using the patient's name and date. Estimated blood loss was minimal. Normal mucosa was found in the entire colon. Biopsies were taken with a cold forceps for histology. Verification of patient identification for the specimen was done by the physician and nurse using the patient's name and date. Estimated blood loss was minimal. The retroflexed view of the distal rectum and anal verge was normal and showed no anal or rectal abnormalities. Impression: - The examined portion of the ileum was normal. - One 4 mm polyp in the ascending colon, removed with a cold snare. Resected and retrieved. - Normal appearing mucosa in the entire examined colon. Biopsied. - The distal rectum and anal verge are normal on retroflexion view. Recommendation: - Await pathology results. - Agree with appt to see a aurgeon. No evidence of diverticulosis or Crohn's disease. No obvious reason for a rectovaginal fistula. - Repeat colonoscopy for surveillance based on pathology results. - Return to primary care physician as previously scheduled. - Discharge patient to home. Yolanda Bonner D.O. Yolanda Bonner, 02/11/2017 10:17:40 AM This report has been signed electronically. Note Initiated On: 02/11/2017 9:54 AM I attest to the content of the Intraoperative Record and orders documented therein, exceptions below
--- NOTE | 2017-02-11 11:02 | Anesthesiology Progress Note ---
Anesthesia Post Op Note Date & Time February 11, 2017 at 11:02 Vital Signs Pain Intensity: 0 Vital Signs Past 12 Hours Date Time Temp Pulse Resp B/P Pulse Ox O2 Delivery O2 Flow Rate FiO2 02/11/17 10:47 74 18 144/61 94 Room Air 02/11/17 10:32 63 18 136/73 95 Room Air 02/11/17 10:17 65 18 121/60 96 Room Air 02/11/17 09:25 36.6 78 18 179/74 96 Room Air Notes Mental Status: alert / awake / arousable, participated in evaluation Pt Amnestic to Procedure: Yes Nausea / Vomiting: adequately controlled Pain: adequately controlled Airway Patency, RR, SpO2: stable & adequate BP & HR: stable & adequate Hydration State: stable & adequate Anesthetic Complications: no major complications apparent
== END | disposition home or self-care (01) ==
LOC: C.GI 09:10
PROVIDERS: ATTEND Internal Medicine
DX: D12.2 Benign neoplasm of ascending colon (principal); K58.9 Irritable bowel syndrome, unspecified; I10 Essential (primary) hypertension; E78.00 Pure hypercholesterolemia, unspecified; E11.9 Type 2 diabetes mellitus without complications; E07.9 Disorder of thyroid, unspecified; M19.90 Unspecified osteoarthritis, unspecified site; Z80.0 Family history of malignant neoplasm of digestive organs; Z79.84 Long term (current) use of oral hypoglycemic drugs; Z79.899 Other long term (current) drug therapy

== ENCOUNTER → 2017-06-09 | Outpatient (CLI) | payer BC ==
[~2017-06-09] MED LIST changes: -PROPOFOL IV EMULSION 10 MG/ML 20 ML VIAL IV ONE; -SODIUM CHLORIDE 0.9% 500ML 500 ML IV ONE
--- NOTE | 2017-06-10 07:58 | MAMMOGRAPHY REPORT ---
BILATERAL DIGITAL SCREENING MAMMOGRAM WITH CAD: 06/09/2017 CLINICAL HISTORY: Routine screening. Patient has no complaints. TECHNIQUE: Bilateral CC, MLO and left cleavage views were obtained. Current study was also evaluated with a Computer Aided Detection (CAD) system. COMPARISON: Comparison is made to exams dated: 06/05/2016 mammogram, 02/22/2014 mammogram, 02/21/2013 m ammogram, 02/18/2012 mammogram, 02/14/2011 mammogram, and 09/18/2005 mammogram - [facility] er. BREAST COMPOSITION: The tissue of both breasts is almost entirely fatty. FINDINGS: There are scattered benign-appearing calcifications bilaterally. Linear scar markers overl ie each breast. No suspicious mass, architectural distortion or cluster of suspicious microcalcifica tions is seen. IMPRESSION: ACR BI-RADS CATEGORY 1: NEGATIVE There is no mammographic evidence of malignancy. A 1 year screening mammogram is recommended. The pa tient will receive written notification of the results. Approximately 10% of breast cancers are not detected with mammography. A negative mammographic report should not delay biopsy if a clinically suggestive mass is present. Rosangela Pacheco M.D. ay/:06/09/2017 15:36:24 Shoe Repairman: Nelly SHARP(Gonzalez)([place]), [facility] letter sent: Normal 1/2 BI-RADS Code: ACR BI-RADS Category 1: Negative
== END | disposition home or self-care (01) ==
LOC: C.MAMM 13:58
PROVIDERS: ATTEND Nurse Practitioner Adult Health
DX: Z12.31 Encounter for screening mammogram for malignant neoplasm of breast (principal)

== ENCOUNTER 2017-11-10 05:01 | Inpatient (IN) | payer BC, OTHER ==
[2017-10-09 10:32] VITALS: BMI 44.0
--- NOTE | 2017-10-09 11:13 | PAT Medication Instructions ---
Service Date Oct 09, 2017. Current Home Medication List Allopurinol (Allopurinol), 300 MG PO HS Atorvastatin (Lipitor), 20 MG PO HS Metformin Hcl (Glucophage), 1,000 MG PO BID Metoprolol Succ (Toprol Xl) (Toprol-Xl), 25 MG PO QPM Olmesartan/Hctz (Benicar Hct 40/25), 1 TAB PO QAM Sodium Fluoride (Dental) (Sf 5000 Plus), 1 APPLN OR DAILY Medication Instructions For Your Scheduled Surgery Sodium Fluoride (Dental) (Sf 5000 Plus), 1 APPLN OR DAILY (continue toothpaste use as directed) - Hold the following medications 48 hours prior to surgery: Metformin Hcl (Glucophage), 1,000 MG PO BID - Hold the following medications the morning of surgery: Olmesartan/Hctz (Benicar Hct 40/25), 1 TAB PO QAM - Take the following medications as scheduled the night before surgery: Allopurinol (Allopurinol), 300 MG PO HS Atorvastatin (Lipitor), 20 MG PO HS Metoprolol Succ (Toprol Xl) (Toprol-Xl), 25 MG PO QPM If you have any questions please call us at [phone] or [phone] or [phone]
--- NOTE | 2017-10-09 11:55 | DIAGNOSTIC IMAGING REPORT ---
CHEST 2 VIEWS ROUTINE CLINICAL HISTORY: PAT preoperative evaluation COMPARISON STUDY: 10/14/2016 FINDINGS: Mild chronic interstitial change. No change in the prior exam. No acute infiltrate. Heart top normal in terms of size. No change from the prior exam. IMPRESSION: Chronic change. No acute process. The above report was generated using voice recognition software. It may contain grammatical, syntax or spelling errors. Electronically signed by: Antonio Scanlon M.D. 10/09/2017 11:53 AM Dictated Date/Time: 10/09/2017 11:53 AM
[2017-10-09 12:19] LABS: BASO % 0.1 %; BASO ABS # 0.01 K/uL (0-0.2); EOS % 2.2 %; EOS ABS # 0.17 K/uL (0-0.5); HEMATOCRIT 41.5 % (37-47); HEMOGLOBIN 13.7 g/dL (12.0-16.0); IG# 0.03 K/uL (0.00-0.02); LYMPH % 20.7 %; LYMPH ABS # 1.61 K/uL (1.2-3.4); MEAN CELL VOLUME 87.4 fL (80-100); MEAN CORPUSCULAR HEMOGLOBIN 28.8 pg (25-34); MEAN PLATELET VOLUME 11.8 fL (7.4-10.4); MONO % 6.1 %; MONO ABS # 0.47 K/uL (0.11-0.59); NEUT % 70.5 %; NEUT ABS # 5.47 K/uL (1.4-6.5); PLATELET COUNT 217 K/uL (130-400); RED CELL DISTRIBUTION WIDTH CV 14.2 % (11.5-14.5); WHITE BLOOD COUNT 7.76 K/uL (4.8-10.8)
[2017-10-09 12:51] LABS: HEMOGLOBIN A1C 7.1 % (4.5-5.6)
[2017-10-09 13:35] LABS: CREATININE 0.84 mg/dl (0.60-1.20)
[2017-10-09 13:36] LABS: CALCIUM 10.2 mg/dl (8.5-10.1); POTASSIUM 4.1 mmol/L (3.5-5.1)
--- NOTE | 2017-11-07 22:34 | HISTORY & PHYSICAL EXAMINATION ---
DATE OF ADMISSION: 11/10/2017 CHIEF COMPLAINT: Bilateral knee pain and discomfort, right side greater than left. HISTORY OF PRESENT ILLNESS: A 76-year-old who I have been following for the past 7-8 years for conservative treatment of her knee arthritis. She has had multiple injections of both steroids and viscosupplementation which has become less successful over time. Last shots really have not helped much at all. She is having more and more difficulty getting around. She has pain with every step. It is global in the knee. She would now like to proceed with surgical treatment. PAST MEDICAL HISTORY: 1. Diabetes x3 years. 2. Elevated cholesterol. 3. Hypertension. 4. Obesity with a BMI of 44. 5. Gastroesophageal reflux disease. 6. Low back pain. 7. Gout. PAST SURGICAL HISTORY: 1. Total hysterectomy. 2. Parathyroidectomy. 3. Cataract surgery. 4. Cervical laminectomy. 5. Tonsillectomy. 6. Trigger finger release. 7. Shoulder replacement. ALLERGIES: None. CURRENT MEDICINES: 1. Metformin 1000 mg twice per day. 2. Olmesartan/hydrochlorothiazide 40/25 once per day. 3. Allopurinol once a day. 4. Metoprolol 25 mg at nighttime. SOCIAL HISTORY: A 76-year-old female. Lives in [place]. Does not smoke. FAMILY HISTORY: Negative for diabetes, heart disease, blood clots. REVIEW OF SYSTEMS: Negative for diabetes. A1c is 7.1. Denies any chest pain or shortness of breath. No evidence of DVT or PE. PHYSICAL EXAMINATION: GENERAL: A pleasant middle-aged female who looks to be in acceptable health. HEENT: Benign. NECK: Supple. No lymphadenopathy. LUNGS: Clear to auscultation. HEART: Has a regular rate and rhythm. ABDOMEN: Soft, nontender and nondistended. EXTREMITIES: Grossly neurovascularly intact except as follows: Examination of both knees reveals the patient walks with a bit of a wobbling gait. She has got varus alignment to both knees. She has got some chronic stasis changes distally in both legs. Range of motion is pretty symmetrically about 5-10 degrees short of full extension to 120 degrees of flexion. No instability. X-RAYS: X-rays of both knees show advanced bilateral knee DJD. She has got complete loss of the medial joint space of both knees. Pretty equal in severity. Diffuse osteopenia. ASSESSMENT: A 76-year-old female with advanced bilateral knee degenerative joint disease and failed conservative treatment. The right side is more symptomatic than the left. She has got some chronic stasis changes distally. She would like to have her right knee replaced. PLAN: We are going to take her to the operating room and do a right total knee replacement. The risks and benefits of this procedure were explained to the patient including but not limited to DVT, PE, , infection, neurological, neurovascular, bleeding problems, pain, limited range of motion, stiffness, incomplete relief of symptoms, need for further surgery in the future, fracture, leg length inequality, nerve palsy, etc. The patient understands and desires to proceed. Informed consent was obtained. She knows to metformin 2 days preop. She will take the metoprolol the night before surgery. She will bring her CPAP machine to the hospital. We will use insulin sliding scale coverage in the acute recovery period. She is hoping to be discharged to the [facility] for brief rehab stay. SHEELA
[~2017-11-10] VITALS: Ht 160 cm; Wt 113.3 kg
[2017-11-10] VITALS (8 sets, daily range): BP systolic 123–153; BP diastolic 63–83; PULSE 72–91; TEMP 36.5–36.9; O2SAT 92–96; Ht 160 cm; Wt 113.3 kg
[~2017-11-10 05:01] MED LIST changes: -ATEN-173 PO; -COEN200C17 PO; +METO25TA3 PO; -PRLSR20 PO; +SODI1.1C4 OR
[2017-11-10] MEDS ORDERED: cipro PO (05:58)
[2017-11-10] MEDS ORDERED: FAMOTIDINE 20 MG TAB PO SCH (06:00)
[2017-11-10] MEDS ORDERED: BUPIVACAINE LIPOSOME 266 MG, BUPIVACAINE/EPINEPHRINE INJ 50 ML, SODIUM CHLORIDE 0.9% PF... INFIL SCH ×3 (06:00)
[2017-11-10] MEDS ORDERED: CEFAZOLIN 2000MG IV PUSH 15 ML IV SCH (06:00)
[2017-11-10] MEDS ORDERED: LACTATED RINGER'S 1000ML 1,000 ML IV SCH (06:00)
[2017-11-10] MEDS ORDERED: LACTATED RINGER'S 1000ML IV SCH (06:00)
[2017-11-10] MEDS ORDERED: METOCLOPRAMIDE HCL 10 MG TAB PO SCH (06:00)
[2017-11-10] MEDS ORDERED: ACETAMINOPHEN 500 MG TAB PO SCH (06:00)
[2017-11-10] MEDS ORDERED: GABAPENTIN 300 MG CAP PO SCH (06:00)
[2017-11-10] MEDS ORDERED: FENTANYL CITRATE INJ 50 MCG/1 ML 2 ML VIAL ONE (06:21)
[2017-11-10] MEDS ORDERED: PROPOFOL IV EMULSION 10 MG/ML 20 ML VIAL IV ONE (06:21)
[2017-11-10] MEDS ORDERED: MIDAZOLAM HCL 1 MG/ML 2ML VIAL ONE ×2 (06:21→07:06)
[2017-11-10] MEDS ORDERED: SODIUM CHLORIDE 0.9% PF 50 ML VIAL ONE (06:26)
[2017-11-10] MEDS ORDERED: BUPIVACAINE 0.25% 30 ML VIAL ONE ×2 (06:27→06:34)
[2017-11-10] MEDS ORDERED: BUPIVACAINE LIPOSOME 1/3% 266 MG/20 ML VIAL INFIL ONE (06:27)
[2017-11-10] MEDS ORDERED: BACITRACIN 50000 UNIT VIAL ONE (06:27)
[2017-11-10] MEDS ORDERED: EpINEphrine INJ 1MG/ML AMP 1 MG/ML AMP ONE (06:28)
[2017-11-10] MEDS ORDERED: TRANEXAMIC ACID INJ 1,000 MG x 2 Bags IV SCH ×2 (06:30)
[2017-11-10] MEDS ORDERED: BUPIVACAINE 0.5 % 5 MG/1 ML PF 10ML VIAL ONE (06:34)
--- NOTE | 2017-11-10 06:51 | History & Physical Bridge Note ---
H&P Re-Evaluation Bridge Note: I have examined the patient, reviewed the History & Physical and in the interval since the performance of the History & Physical I have noted the following changes of clinical significance: No changes noted
[2017-11-10] MEDS ORDERED: ROPIVACAINE 0.5% 5 MG/ML 30 ML VIAL ONE (06:55)
[2017-11-10] MEDS ORDERED: VANCOMYCIN HCL 1000MG/20ML VIAL ONE (07:06)
[2017-11-10] MEDS ORDERED: HYDROmorphone INJ 2 MG/ML SYR/VIAL IV PRN (07:45)
[2017-11-10] MEDS ORDERED: EpHEDrine SULFATE INJ 50 MG/ML AMP IV PRN (07:45)
[2017-11-10] MEDS ORDERED: ATROPINE SULFATE 0.1 MG/ML 5ML SYR IV PRN (07:45)
[2017-11-10] MEDS ORDERED: ONDANSETRON INJ 2 MG/ML 2 ML VIAL IV PRN ×2 (07:45→08:45)
[2017-11-10] MEDS ORDERED: PHENYLEPHRINE 100MCG/ML 5ML SYR IV PRN (07:45)
--- NOTE | 2017-11-10 08:43 | [facility] Post Operative Brief Note ---
Immediate Operative Summary Operative Date Nov 10, 2017. Pre-Operative Diagnosis Right Knee Degenerative Joint Disease Post-Operative Diagnosis Same as preop Procedure(s) Performed Right Total Knee Arthroplasty Surgeon Dr. Osuna Architectural Design Lecturer Surgeon(s) Peng Zhang PA-C Estimated Blood Loss 50 ml Findings Consistent with Post-Op Diagnosis Fluids (cc crystalloids) 2000 cc Specimens A. Right Knee bone and Tissue Drains None Anesthesia Type MAC Spinal Regional Complication(s) none Disposition Accompanied Pt To Recover: no Disposition: Recovery Room / PACU
[2017-11-10] MEDS ORDERED: CEFAZOLIN IV 2,000 MG in DEXTROSE 5% 50ML 50 ML IV SCH (08:45)
[2017-11-10] MEDS ORDERED: SILVER SULFADIAZINE 1% CR 50 GM JAR EXT PRN (08:45)
[2017-11-10] MEDS ORDERED: ZOLPIDEM TARTRATE 5 MG TAB PO PRN (08:45)
[2017-11-10] MEDS ORDERED: MAGNESIUM HYDROXIDE SUSP 30 ML UDC PO PRN (08:45)
[2017-11-10] MEDS ORDERED: HYDROmorphone INJ 0.5 MG/0.5 ML SYR IV PRN (08:45)
[2017-11-10] MEDS ORDERED: BISACODYL 10 MG SUPP PR PRN (08:45)
[2017-11-10] MEDS ORDERED: METOCLOPRAMIDE HCL INJ 5 MG/ML 2 ML VIAL IV PRN (08:45)
[2017-11-10] MEDS ORDERED: ALUMINUM/MAGNESIUM/SIMETH (MAALOX MAX) 30 ML UDC PO PRN (08:45)
[2017-11-10] MEDS ORDERED: NON-FORMULARY MEDICATION (Olmesartan/Hctz (Benicar Hct 40/25) 1 TAB) PO SCH (09:00)
--- NOTE | 2017-11-10 09:06 | DIAGNOSTIC IMAGING REPORT ---
R KNEE 1 OR 2 VIEWS ROUTINE CLINICAL HISTORY: 77 years-old Female presenting with AP/LATERAL IN PACU RIGHT KNEE. TECHNIQUE: Frontal and lateral views of the right knee were obtained. COMPARISON: 09/03/2017. FINDINGS: Post surgical changes of total right knee arthroplasty with patellar resurfacing. Expected intra-articular and soft tissue emphysema. Overlying skin terssa noted. No malalignment. No periprosthetic fracture. No hardware convocation. Osteopenia may be present. IMPRESSION: Expected post surgical findings status post total right knee arthroplasty with patellar resurfacing. Electronically signed by: Romulo Higginbotham M.D. 11/10/2017 9:04 AM Dictated Date/Time: 11/10/2017 9:03 AM
[2017-11-10] MEDS ORDERED: GLUCAGON FOR INJ 1 MG VIAL SQ PRN (09:15)
[2017-11-10] MEDS ORDERED: DEXTROSE 50% 50 ML SYR IV PRN (09:15)
[2017-11-10] MEDS ORDERED: GLUCOSE 10 TABS/TUBE PO PRN (09:15)
[2017-11-10] MEDS ORDERED: GLUCOSE 40% GEL 15 GM TUBE PO PRN (09:15)
--- NOTE | 2017-11-10 09:54 | OPERATIVE REPORT ---
DATE OF OPERATION: 11/10/2017 SURGEON: Jeff Osuna MD HIGH SCHOOL MATHEMATICS TEACHER: SALLY Zaldivar PREOPERATIVE DIAGNOSIS: Right knee degenerative joint disease. POSTOPERATIVE DIAGNOSIS: Same. PROCEDURE PERFORMED: Right cemented posterior stabilized total knee arthroplasty. COMPLICATIONS: None. ESTIMATED BLOOD LOSS: 50 mL. FLUID REPLACEMENT: 2000 mL crystalloid fluid replacement. ANESTHESIA: Spinal. DRAINS: None. SPECIMENS: Right knee sent for pathology. OPERATIVE INDICATIONS: The patient is a 77-year-old female who has had a long history of bilateral knee pain and discomfort. I have been following her over the past 7-8 years for this problem. She had been treating conservatively with injections. This became less successful over time. She elects to proceed with a total knee arthroplasty. The patient does have an apparent nickel allergy and therefore we used the Mohr [employer] Nephew Zirconium total knee arthroplasty. OPERATIVE FINDINGS: Operative findings revealed advanced right knee DJD. She did have grade 4 changes in all 3 compartments, most severe in the medial side. She had osteophytes in the medial femoral condyle and medial tibial plateau. Moderate size joint effusion. Moderate soft tissue envelope. Slight flexion contracture of 10 degrees. OPERATIVE IMPLANTS: Operative implants consisted of: 1. Mohr [employer] Nephew Zirconium size 4 right posterior stabilized femoral component. 2. Mohr & Nephew Journey II, size 3 tibial tray. 3. A 9-mm posterior stabilized polyethylene insert. 4. A 32 x 9 all poly patella. OPERATIVE PROCEDURE: The patient was taken to the operating room, identified and placed on the operating table in the supine position. All contact areas were appropriately padded. IV antibiotics were provided by anesthesia team. A spinal anesthetic and adductor canal block had been provided in the holding area. Padilla catheter was placed in sterile fashion. Right thigh tourniquet was then placed. The right lower extremity was then prepped and draped in the usual sterile fashion. The right leg was elevated and exsanguinated with Esmarch and tourniquet was placed at 300 mmHg. An anterior approach to the right knee was then performed through a longitudinal incision centered over the patella. Sharp dissection was carried out through the subcutaneous tissues down to the level of the extensor mechanism. A medial parapatellar arthrotomy incision was made. Some subperiosteal dissection was carried out medially. The fat pad was resected from beneath the patellar tendon. The lateral patellofemoral ligament was released. The patella was subluxated laterally and the knee was flexed. The osteophytes were taken off the distal femur. The ACL and PCL were then released from the distal femur and the tibia subluxated anteriorly. The external tibial alignment jig was then placed in the anterior face of the tibia and adjusted 8 mm medially. Proximal tibial cut was made to remove about 3 mm of bone from the medial side. The tibia was sized to a size 3. Attention was then drawn to the femur. The distal femur was entered with a sharp drill. Intramedullary canal was suctioned. Distal femoral cutting block was pinned in place. A 5-degree distal cut was made and adjusted to take an additional 2 mm of bone off the distal femur. The femur was then sized. We did downsize to provide a size 4. The AP cutting block was pinned parallel to the epicondylar axis, which was 4 degrees of external rotation. The anterior cut, anterior cord, posterior cut, posterior chamfer, and anterior chamfer cuts were made. The knee was then flexed. The remnants of the medial and lateral menisci were excised. The osteophytes were taken off the posterior aspect of the femur. The femoral component was placed. The intercondylar notch cutting guide was placed and the intercondylar defect was created. The trochlea was then placed. The tibia subluxated anteriorly. The tibial tray was pinned in maximum external rotation and the drill and stem punch were used to create defect in proximal tibia for the tibial tray. The knee was then trialed and the 9-mm insert fit most appropriately. Attention was then drawn to the patella. The patella was cleaned of all soft tissues. Patella thickness measured 24 mm in thickness and was cut down to about 14-15. It was sized to a size 32 patella. Lug holes were drilled for a 34 patella. The lateral osteophyte was removed. Patella button was placed. Knee was taken through range of motion and patella tracked nicely with no thumbs test. Attention was then drawn toward placement of permanent components. All trial components were removed. A bone plug was placed in the distal femur to limit blood loss. A double batch of Palacos G cement was mixed. I added an additional gram of Vancomycin due to her stasis changes and diabetes. A right size 4 posterior stabilized femoral component, size 3 tibial tray, 9-mm posterior stabilized polyethylene insert, and a 32 x 9 all poly patella then cemented in place. Knee was brought out into full extension until cement hardened. A final cement check was then performed. Pericapsular tissues were injected with a total of 100 mL of a combination of 20 mL of Exparel, 30 mL of normal saline, and 50 mL of 0.25% Marcaine with epinephrine. The patient did receive 1 gram of tranexamic acid. The tourniquet was then let down for final tourniquet time of 60 minutes. The wound was once again irrigated. Hemostasis was assured with use of electrocautery. The extensor mechanism was then closed with a combination of #1 PDS suture and #1 Vicryl suture in a [id number] fashion. Extensor mechanism was checked and found to be intact. Subcutaneous tissues were then closed with 2-0 Dexon suture in a buried interrupted fashion. Skin was closed skin tressa. Leg was then cleaned and dried and a sterile dressing of Xeroform, 4 x 4, sterile cast padding and an Judson bandage were applied. The patient was then transferred to the recovery room in stable condition. The patient tolerated the procedure with no complications. All needle and sponge counts were correct at the end of the operation. I attest to the content of the Intraoperative Record and any orders documented therein. Any exceptions are noted below. SHEELA
--- NOTE | 2017-11-10 11:53 | Anesthesiology Progress Note ---
Anesthesia Post Op Note Date & Time Nov 10, 2017 at 11:52 Vital Signs Pain Intensity: 0.0 Vital Signs Past 12 Hours Date Time Temp Pulse Resp B/P (MAP) Pulse Ox O2 Delivery O2 Flow Rate FiO2 11/10/17 11:10 36.5 81 18 123/74 (90) 95 Nasal Cannula 2.0 11/10/17 10:40 94 Nasal Cannula 2.0 11/10/17 10:40 94 Nasal Cannula 2.0 11/10/17 10:40 36.5 82 18 143/79 (100) 94 Nasal Cannula 2.0 11/10/17 10:29 75 17 11/10/17 10:29 76 17 93 11/10/17 10:26 103/48 11/10/17 10:24 76 17 11/10/17 10:24 76 17 95 11/10/17 10:21 108/54 11/10/17 10:19 77 19 11/10/17 10:19 77 19 95 11/10/17 10:18 82 19 97 11/10/17 10:18 81 19 11/10/17 10:16 121/60 11/10/17 10:13 76 17 96 11/10/17 10:13 75 17 11/10/17 10:11 107/58 11/10/17 10:08 73 18 94 11/10/17 10:08 74 18 11/10/17 10:06 106/53 11/10/17 10:03 73 17 94 11/10/17 10:03 75 17 11/10/17 10:01 114/53 11/10/17 09:58 87 16 11/10/17 09:58 87 16 96 11/10/17 09:56 127/55 11/10/17 09:53 77 18 11/10/17 09:53 77 18 96 11/10/17 09:52 77 17 11/10/17 09:52 78 17 96 11/10/17 09:51 117/55 11/10/17 09:47 78 18 11/10/17 09:47 78 18 95 11/10/17 09:46 121/62 11/10/17 09:42 77 16 11/10/17 09:42 77 16 95 11/10/17 09:41 139/64 11/10/17 09:37 76 15 11/10/17 09:37 74 15 96 11/10/17 09:36 139/56 11/10/17 09:32 76 18 96 11/10/17 09:32 76 18 11/10/17 09:31 137/63 11/10/17 09:27 74 15 11/10/17 09:27 74 15 96 11/10/17 09:26 113/66 11/10/17 09:22 74 16 97 11/10/17 09:22 77 16 11/10/17 09:21 36.4 73 18 113/66 (88) 96 Nasal Cannula 2 11/10/17 09:21 125/67 11/10/17 09:17 76 16 97 11/10/17 09:17 76 16 11/10/17 09:16 145/70 11/10/17 09:15 80 18 11/10/17 09:15 77 18 96 11/10/17 09:11 143/76 11/10/17 09:10 78 17 98 11/10/17 09:10 79 17 11/10/17 09:09 76 11 97 11/10/17 09:09 77 11 11/10/17 09:08 76 13 11/10/17 09:08 77 13 97 11/10/17 09:06 147/57 11/10/17 09:03 80 16 11/10/17 09:03 79 16 98 11/10/17 09:01 157/67 11/10/17 08:58 80 14 11/10/17 08:58 80 14 99 11/10/17 08:57 138/59 11/10/17 08:53 86 23 11/10/17 08:53 85 23 100 11/10/17 08:51 122/98 11/10/17 08:49 172/150 11/10/17 08:48 36.1 91 19 122/98 (104) 96 Oxymask 10 11/10/17 05:45 36.8 81 20 153/63 93 Room Air Notes Mental Status: alert / awake / arousable, participated in evaluation Pt Amnestic to Procedure: Yes Nausea / Vomiting: adequately controlled Pain: adequately controlled Airway Patency, RR, SpO2: stable & adequate BP & HR: stable & adequate Hydration State: stable & adequate Anesthetic Complications: no major complications apparent
[2017-11-10] MEDS: MULTIVITAMIN TAB PO SCH (12:03)
[2017-11-10] MEDS: KETOROLAC TROMETHAMINE 15 MG/ML VIAL IV. SCH ×3 (12:08→23:04)
[2017-11-10] MEDS: TRAMADOL HCL 50 MG TAB PO PRN ×2 (13:05→13:30)
[2017-11-10] MEDS: INSULIN HUMAN REGULAR SC SCH ×3 (13:12→20:53)
[2017-11-10] MEDS: FERROUS GLUCONATE 324 MG TAB PO SCH ×2 (13:13→18:14)
[2017-11-10] MEDS: ACETAMINOPHEN 500 MG TAB PO SCH ×2 (13:15→20:45)
[2017-11-10] MEDS ORDERED: TRANEXAMIC ACID INJ 1,000 MG in SODIUM CHLORIDE 0.9% 100ML 100 ML IV SCH (14:00)
[2017-11-10] MEDS: SODIUM CHLORIDE 0.9% 1000ML 1,000 ML IV SCH ×2 (14:13→20:42)
[2017-11-10] MEDS: CEFAZOLIN IV 2,000 MG in SYRINGE 0 ML IV SCH ×2 (16:39→23:03)
--- NOTE | 2017-11-10 17:50 | PROGRESS NOTE ---
DATE: 11/10/2017 SUBJECTIVE: A 77-year-old white female postop from a right knee replacement. She is doing well. Really not having much pain at all. No chest pain or shortness of breath. Not feeling dizzy or lightheaded. OBJECTIVE: VITAL SIGNS: Temperature is 36.7. Vital signs stable. GENERAL: Reveals a pleasant elderly female. She is sitting up at her bedside chair talking to her . She looks comfortable. LUNGS: Clear to auscultation. HEART: Regular rate and rhythm. ABDOMEN: Soft, nontender, nondistended. EXTREMITIES: Grossly neurovascularly intact except as follows: Examination of the right leg reveals the dressing to be clean, dry and intact. She can dorsiflex and plantarflex her foot appropriately. She is neurologically intact. Good distal pulse. Brisk refill. X-RAYS: X-ray of the right knee from recovery room reviewed. Shows a right cemented posterior stabilized total knee arthroplasty. Components are in good position. No signs of problems. ASSESSMENT: A 77-year-old female postop from right knee replacement, doing pretty well. Pain is controlled. She is neurologically intact. PLAN: 1. DVT prophylaxis including thigh-high TEDs, SCDs, and aspirin twice a day. 2. PT/OT. Weightbear as tolerated. Right total knee protocol. 3. Pain control, doing well with current pain regimen. 4. IV antibiotics x24 hours. 5. Diabetes. Will use insulin sliding scale to control in the hospital. Resume previous meds in 2 days. 6. Disposition: She is hoping to be discharged to the [facility] for a brief rehab stay.
[2017-11-10] MEDS: DOCUSATE SODIUM 100 MG CAP PO SCH (20:43)
[2017-11-10] MEDS: METOPROLOL SUCC 25MG EXT REL TAB PO SCH (20:44)
[2017-11-10] MEDS: ATORVASTATIN 20 MG TAB PO SCH (20:44)
[2017-11-10] MEDS: SENNA 8.6 MG TAB PO SCH (20:44)
[2017-11-10] MEDS: ALLOPURINOL 300 MG TAB PO SCH (20:44)
[2017-11-10] MEDS: ASPIRIN 81 MG ECTAB PO SCH (20:45)
[2017-11-11 03:45] VITALS: BP 125/70; PULSE 66; TEMP 36.5; O2SAT 93
[2017-11-11] MEDS: SODIUM CHLORIDE 0.9% 1000ML 1,000 ML IV SCH (04:00)
[2017-11-11 05:33] LABS: HEMATOCRIT 33.1 % (37-47); HEMOGLOBIN 11.1 g/dL (12.0-16.0); MEAN CELL VOLUME 86.6 fL (80-100); MEAN CORPUSCULAR HEMOGLOBIN 29.1 pg (25-34); MEAN CORPUSCULAR HGB CONC 33.5 g/dl (32-36); MEAN PLATELET VOLUME 10.9 fL (7.4-10.4); PLATELET COUNT 169 K/uL (130-400); RED CELL DISTRIBUTION WIDTH CV 14.6 % (11.5-14.5); RED CELL DISTRIBUTION WIDTH SD 45.8 fL (36.4-46.3); WHITE BLOOD COUNT 9.43 K/uL (4.8-10.8)
[2017-11-11] MEDS: KETOROLAC TROMETHAMINE 15 MG/ML VIAL IV. SCH ×4 (05:45→23:32)
[2017-11-11] MEDS: ACETAMINOPHEN 500 MG TAB PO SCH ×3 (05:46→21:05)
[2017-11-11 05:55] LABS: CALCIUM 8.2 mg/dl (8.5-10.1); POTASSIUM 4.1 mmol/L (3.5-5.1)
[2017-11-11 07:47] VITALS: BP 116/68; PULSE 68; TEMP 36.7; O2SAT 94
--- NOTE | 2017-11-11 07:57 | Anesthesiology Progress Note ---
Anesthesia Post Op Note Date & Time Nov 11, 2017 at 07:56 Vital Signs Pain Intensity: 0.0 Vital Signs Past 12 Hours Date Time Temp Pulse Resp B/P (MAP) Pulse Ox O2 Delivery O2 Flow Rate FiO2 11/11/17 07:47 36.7 68 18 116/68 (84) 94 Room Air 11/11/17 03:45 36.5 66 16 125/70 (88) 93 Room Air 11/10/17 23:03 36.7 72 16 126/64 (84) 92 Room Air 11/10/17 20:42 78 132/74 (93) Notes Mental Status: alert / awake / arousable, participated in evaluation Pt Amnestic to Procedure: Yes Nausea / Vomiting: adequately controlled Pain: adequately controlled Airway Patency, RR, SpO2: stable & adequate BP & HR: stable & adequate Hydration State: stable & adequate Neuraxial Anesthesia: was administered, sensory block resolved Anesthetic Complications: no major complications apparent
[2017-11-11] MEDS: INSULIN HUMAN REGULAR SC SCH ×4 (08:47→21:08)
[2017-11-11] MEDS: DOCUSATE SODIUM 100 MG CAP PO SCH ×2 (08:48→21:05)
[2017-11-11] MEDS: HYDROCHLOROTHIAZIDE 25 MG TAB PO SCH (08:48)
[2017-11-11] MEDS: MULTIVITAMIN TAB PO SCH (08:48)
[2017-11-11] MEDS: OLMESARTAN MEDOXOMIL 40 MG TAB PO SCH (08:48)
[2017-11-11] MEDS: PANTOprazole SOD 40 MG TAB PO SCH (08:49)
[2017-11-11] MEDS: ASPIRIN 81 MG ECTAB PO SCH ×2 (08:49→21:05)
[2017-11-11] MEDS: FERROUS GLUCONATE 324 MG TAB PO SCH ×3 (08:49→17:27)
[2017-11-11 11:53] VITALS: BP 138/76; PULSE 62; TEMP 36.8; O2SAT 93
[2017-11-11] MEDS: TRAMADOL HCL 50 MG TAB PO PRN ×2 (11:55→21:05)
[2017-11-11 15:11] VITALS: BP 151/80; PULSE 81; TEMP 36.9; O2SAT 95
--- NOTE | 2017-11-11 20:24 | PROGRESS NOTE ---
DATE: 11/11/2017 SUBJECTIVE: A 77-year-old female postop day #1 from right knee replacement. She is doing well. Last evening, she had a pretty severe bout of pain, but this is improved today. No chest pain or shortness of breath. Not feeling dizzy or lightheaded. OBJECTIVE: VITAL SIGNS: Temperature 36.9. Vital signs stable. GENERAL: Reveals a pleasant elderly female. She is sitting up in bed and talking to her . She looks reasonably comfortable. EXTREMITIES: Examination of the right leg reveals the dressing to be clean, dry and intact. She can dorsiflex and plantarflex her foot appropriately. NEUROLOGICAL: She is neurologically intact. LABORATORY DATA: Hemoglobin 11.1, hematocrit 33.1. Electrolytes are stable. ASSESSMENT: A 77-year-old female postop day #1 from right knee replacement, doing pretty well. She has had some intermittent bouts of pretty significant pain which is not unexpected. Doing okay now. PLAN: 1. DVT prophylaxis including thigh-high TEDs, SCDs, and aspirin twice a day. 2. PT/OT. Weightbear as tolerated. Right total knee protocol. 3. Pain control. Doing reasonably well with current pain regimen. 4. Disposition: She is hoping to be discharged to [facility] for a brief rehab stay once stable. SHEELA
[2017-11-11 20:30] VITALS: BP 144/73; PULSE 82
[2017-11-11] MEDS: METOPROLOL SUCC 25MG EXT REL TAB PO SCH (21:05)
[2017-11-11] MEDS: ATORVASTATIN 20 MG TAB PO SCH (21:05)
[2017-11-11] MEDS: ALLOPURINOL 300 MG TAB PO SCH (21:05)
[2017-11-11] MEDS: SENNA 8.6 MG TAB PO SCH (21:05)
[2017-11-11] MEDS ORDERED: ULT50X PO (22:29)
[2017-11-11] MEDS ORDERED: ACET-24 PO (22:29)
[2017-11-11] MEDS ORDERED: ASPEC81 PO (22:29)
[2017-11-11] MEDS ORDERED: FRRG PO (22:29)
--- NOTE | 2017-11-11 22:32 | Discharge Instructions ---
Discharge Instructions Date of Service Nov 11, 2017. Admission Reason for Admission: Right Knee Degenerative Joint Disease Discharge Discharge Diagnosis / Problem: Right Knee Replacement Discharge Goals Goal(s): Decrease discomfort, Improve function, Increase independence, Improve disease control, Therapeutic intervention Activity Recommendations Activity Level: Assistance Required Therapies: Physical Therapy, Occupational Therapy Weightbearing Status: Right weightbearing . Additional Information Patient informed of condition: Yes Advance Directives: Yes DNR: No Level of Care: Skilled Communicable Disease: No Prognosis: Improving Instructions / Follow-Up Instructions / Follow-Up ACTIVITY RECOMMENDATIONS: Physical Therapy: * You will go to physical therapy three times each week for four to six weeks after your surgery in order to regain your knee range of motion and to retrain your knee to work properly. * It is just as important to make sure you are getting your knee perfectly straight as it is to regain your knee bend. * Taking a pain pill an hour before therapy can help you have a more productive and comfortable therapy session. Home Exercise: * You were shown a series of exercises (heel props, heel slides, etc.) in the hospital. Do these exercises three to four times each day including the exercises you were shown in physical therapy. Walking: * Get up and walk several times each day. For the first four weeks, try not to stand or walk for more than one hour at a time. If you do stand or walk for more than one hour, you will not hurt anything, but your knee and leg will likely swell. * As you feel comfortable, you may change from the walker or crutches to a cane and then to independent walking. MEDICATIONS: New Medicine: * You will likely be taking one or more of these medications: 1. Tramadsol - A quick and shorter-acting pain medication. Take one to two tablets every four to six hours to lessen your pain. 2. Iron Sulfate - Take two times each day for the month after surgery to help you replace the blood lost during surgery. 3. Aspirin - Thins your blood to lessen the chance of forming a blood clot. * The most common side effects of pain medicine and iron are nausea and constipation. If nausea or constipation is too much of a problem or if you have any questions about your new medicines or doses, call [facility] at [phone]. We will try to help you manage these issues. VERY IMPORTANT TO READ AND REVIEW" Pain: * The immediate post-operative period after knee replacement surgery is often quite painful. * You are given a prescription for pain medicine. You should take it, as directed, when you need it, especially before physical therapy and before going to bed. Pain that interferes with sleep is very common and can last several months. * You will likely need pain medicine for the first four to six weeks. It will not stop all of the pain. The pain will lessen and as you feel better, you may change to milder pain medicine such as Tylenol. * The most common side effects of pain medicine are nausea and constipation, so don't take more than you need. SPECIAL CARE INSTRUCTIONS: TEDs/Elastic Stockings: * The white elastic stockings help limit swelling and prevent blood clots from forming in your legs. The more you wear them, the more they work. * Wear them for six weeks after knee replacement surgery and four weeks after partial knee replacement. Prevention of Infection: * Take antibiotics one hour before any dental cleaning, dental work, urological procedure, gastrointestinal procedure or any invasive surgery in order to prevent your new joint from getting infected. * You may get the antibiotics from the doctor performing the procedure or you may call our office at before and we will call in a prescription to the pharmacy of your choice. Things to Watch For: * Drainage from the incision site that occurs more than one week after your surgery. * Severely increased knee/leg pain or swelling. * Increased redness at the incision site. * Fever above 102 degrees Fahrenheit. * Unusual chest pain or shortness of breath. * Unusual pain or burning with urination. Call [facility] at with any of the above problems or if you have any questions about your medicines or recovery. FOLLOW UP VISIT: Make an appointment to see your doctor for approximately two weeks after surgery for a progress check and staple removal by calling the office at . Current Hospital Diet Patient's current hospital diet: Diabetes Type 2 Diet Discharge Diet Recommended Diet: Diabetes Type 2 Diet Procedures Procedures Performed: Right Total Knee Arthroplasty Pending Studies Studies pending at discharge: no Laboratory Results Hemoglobin A1c Test 10/09/17 11:23 Range/Units Estimated Average Glucose 157 mg/dl Hemoglobin A1c 7.1 H 4.5-5.6 % Medical Emergencies . Who to Call and When: Medical Emergencies: If at any time you feel your situation is an emergency, please call 911 immediately. . Non-Emergent Contact Non-Emergency issues call your: Surgeon . . "Provider Documentation" section prepared by Jeff Osuna. . Core Measure Problem Core Measures: None
[2017-11-11 23:27] VITALS: BP 113/63; PULSE 66; TEMP 36.7; O2SAT 93
[2017-11-12] MEDS: KETOROLAC TROMETHAMINE 15 MG/ML VIAL IV. SCH (06:06)
[2017-11-12] MEDS: ACETAMINOPHEN 500 MG TAB PO SCH ×2 (06:06→14:09)
[2017-11-12 06:38] VITALS: BP 135/69; PULSE 67; TEMP 36.5; O2SAT 91
--- NOTE | 2017-11-12 07:45 | PROGRESS NOTE ---
DATE: 11/12/2017 SUBJECTIVE: A 77-year-old white female postop day #2 from a right knee replacement. She has had a good night last night. Pain seems to be improving. No chest pain or shortness of breath. OBJECTIVE: VITAL SIGNS: Temperature 36.5. Vital signs stable. GENERAL: Physical examination reveals a pleasant elderly female. She is sitting up in bed and eating her breakfast. Looks pretty comfortable. EXTREMITIES: Examination of the right leg reveals the dressing to be clean, dry and intact. Calf is soft and supple. She is neurologically intact. ASSESSMENT: A 77-year-old white female postop day #2 from a right knee replacement, doing pretty well. Pain seems to be improving. PLAN: 1. DVT prophylaxis including thigh-high TEDs, SCDs, and aspirin twice a day. 2. PT/OT. Weightbear as tolerated. Right total knee protocol. 3. Pain control, doing well with current pain regimen. 4. Disposition: She is hoping to be discharged to [facility] for a rehab stay.
[2017-11-12] MEDS: INSULIN HUMAN REGULAR SC SCH ×2 (07:55→13:23)
[2017-11-12] MEDS: MULTIVITAMIN TAB PO SCH (07:56)
[2017-11-12] MEDS: OLMESARTAN MEDOXOMIL 40 MG TAB PO SCH (07:57)
[2017-11-12] MEDS: FERROUS GLUCONATE 324 MG TAB PO SCH ×2 (07:57→13:21)
[2017-11-12] MEDS: PANTOprazole SOD 40 MG TAB PO SCH (07:57)
[2017-11-12] MEDS: DOCUSATE SODIUM 100 MG CAP PO SCH (07:58)
[2017-11-12] MEDS: ASPIRIN 81 MG ECTAB PO SCH (07:58)
[2017-11-12] MEDS: HYDROCHLOROTHIAZIDE 25 MG TAB PO SCH (07:59)
[2017-11-12 10:16] VITALS: BP 135/69; PULSE 67; TEMP 36.5; O2SAT 91
--- NOTE | 2017-11-24 23:11 | DISCHARGE SUMMARY ---
ADMITTING PHYSICIAN AND SURGEON: Jeff Osuna MD. ADMITTING DIAGNOSIS: Right knee degenerative joint disease. SURGERY PERFORMED: Right total knee arthroplasty. SECONDARY DIAGNOSES: Diabetes, elevated cholesterol, hypertension, obesity, gastroesophageal reflux disease, low back pain, and gout. CONSULTS: None obtained. HISTORY AND PHYSICAL EXAMINATION: Well documented in the patient's chart. HOSPITAL COURSE: The patient was admitted on 11/10/2017 and underwent total knee arthroplasty, tolerated the procedure well. There were no complications. She was transferred to the PACU postoperatively and later to the orthopedic floor for further care. She was given Ancef for antibiotic prophylaxis, JULIO stockings, SCDs and aspirin for DVT prophylaxis. Hemoglobin, hematocrit and vital signs were monitored during hospital stay and remained stable. She did not require any blood transfusions. There were no complications. By postoperative day 2, she was tolerating a diabetic diet. Pain was controlled with oral pain medicine. She was participating in physical therapy. On postop day 2, she was [facility]. She was given printed discharge instructions including new prescriptions for extra strength Tylenol, aspirin, iron supplement and tramadol. Continue her home medications, continue physical therapy, weightbearing as tolerated, JULIO stockings. Follow up in 10-12 days or sooner if any problems or concerns. SHEELA
== END 2017-11-12 14:31 | DRG 470 ==
LOC: C.ACU 05:01 → C.3E 06:40 → ENRESERV 09:24
PROVIDERS: ADMIT Orthopaedic Surgery Sports Medicine; ATTEND Orthopaedic Surgery Sports Medicine
PROC: 0SRC0J9 Replacement of Right Knee Joint with Synthetic Substitute, Cemented, Open Approach (ICD-10-PCS; principal; 2017-11-10 07:00)
DX: M17.11 Unilateral primary osteoarthritis, right knee (principal); Z68.41 Body mass index [BMI] 40.0-44.9, adult; E11.9 Type 2 diabetes mellitus without complications; E78.5 Hyperlipidemia, unspecified; I10 Essential (primary) hypertension; E66.9 Obesity, unspecified; K21.9 Gastro-esophageal reflux disease without esophagitis; M1A.9XX0 Chronic gout, unspecified, without tophus (tophi); Z96.619 Presence of unspecified artificial shoulder joint; Z79.84 Long term (current) use of oral hypoglycemic drugs

== ENCOUNTER 2019-02-17 11:44 | Observation (INO) ==
--- NOTE | 2019-01-17 09:13 | PAT Medication Instructions ---
Medication Instructions Date of Service January 17, 2019 Home Medications acetaminophen [Tylenol Extra 1,000 mg PO QID PRN allopurinol 300 mg PO HS cholecalciferol (vitamin D3) 1,000 unit PO QAM cyanocobalamin (vitamin B-12) 1,000 mcg PO QAM metformin 1,000 mg PO BID metoprolol succinate 50 mg PO QPM olmesartan-hydrochlorothiazide 1 tab PO QAM rosuvastatin [Crestor] 10 mg PO HS DO NOT take the morning of surgery cholecalciferol (vitamin D3) 1,000 unit PO QAM cyanocobalamin (vitamin B-12) 1,000 mcg PO QAM metformin 1,000 mg PO BID olmesartan-hydrochlorothiazide 1 tab PO QAM Take morning of surgery With a small sip of water, OTHERWISE NOTHING TO EAT OR DRINK AFTER MIDNIGHT: acetaminophen [Tylenol Extra 1,000 mg PO QID PRN (okay to take up to 4 hours prior to surgery if needed) Take evening before surgery acetaminophen [Tylenol Extra 1,000 mg PO QID PRN (if needed) allopurinol 300 mg PO HS metformin 1,000 mg PO BID metoprolol succinate 50 mg PO QPM rosuvastatin [Crestor] 10 mg PO HS Other Notes If you have any questions please call us at [phone] or [phone] or [phone] or [phone]
--- NOTE | 2019-01-17 09:21 | Anesthesiology Consultation ---
Date of Service January 17, 2019 History Surgery Operation Date: 02/17/19 08:15 Proposed Procedures p L3-L4, L4-L5 Laminectomy - Wang Butler DO Height/Weight Height: 5 ft 3 in Weight: 113.9 kg Allergies Allergy/AdvReac Type Severity Reaction Status Date / Time neomycin Allergy Intermediate SWELLING, Verified 01/11/19 11:21 REDNESS nickel Allergy Unknown RASH Verified 01/11/19 11:21 adhesive AdvReac Intermediate SKIN Verified 01/11/19 11:21 IRRITATION Corticosteroids AdvReac Intermediate DIFFUSE Verified 01/11/19 11:21 (Glucocorticoids) PAIN,TACHYCARDIA,FEELING OF IMPENDING DOOM Medications Home Medications Medication Instructions Recorded Confirmed Last Taken acetaminophen [Tylenol Extra 1,000 mg PO QID PRN 01/11/19 01/11/19 Unknown Strength] allopurinol 300 mg PO HS 01/11/19 01/11/19 Unknown cholecalciferol (vitamin D3) 1,000 unit PO QAM 01/11/19 01/11/19 Unknown [Vitamin D3] cyanocobalamin (vitamin B-12) 1,000 mcg PO QAM 01/11/19 01/11/19 Unknown [Vitamin B-12] metformin 1,000 mg PO BID 01/11/19 01/11/19 Unknown metoprolol succinate 50 mg PO QPM 01/11/19 01/11/19 Unknown olmesartan-hydrochlorothiazide 1 tab PO QAM 01/11/19 01/11/19 Unknown [Benicar HCT] rosuvastatin [Crestor] 10 mg PO HS 01/11/19 01/11/19 Unknown Past Medical History Medical History Chronic back pain Degenerative disc disease +PAIN/TINGLING RADIATING DOWN LEFT LEG, WORSE IN FOOT Diabetes mellitus, type 2 History of hysterectomy TOTAL Hyperlipidemia Hypertension Irritable bowel syndrome (IBS) Thyroid nodule FOLLOWING WITH [facility] [place] Past Surgical History Surgical History History of arthroscopy RT SHOULDER REPAIR. History of bilateral tubal ligation History of cataract extraction with lens replacement B/L History of eye surgery SCHEDULED FOR LEFT EYE VITRECTOMY January. History of laminectomy 1979 CERVICAL LAMINECTOMY History of parathyroidectomy History of surgery HISTORY OF RECTAL/VAGINAL FISTULA REPAIR History of tonsillectomy History of total knee replacement RT S/P trigger finger release MULTIPLE Social History Smoking Status: Never smoker Do You Dip or Chew Tobacco: No Hx Alcohol Use: Yes Alcohol type: other alcohol intake frequency: holidays/special occasions only Alcohol Intake Frequency Comment: VERY RARE Hx Substance Use: No substance use type: does not use
--- NOTE | 2019-01-17 09:35 | Anesthesiology Consultation ---
Date of Service January 17, 2019 Assessment & Plan (1) Encounter for pre-operative examination: Chart Review Chart Review: Acceptable Risk for Surgery and Patient seen in Pre Admission Testing Consults Requested none Teaching & Discussion Pre-Anesthesia Teaching/Discussion Notes: Instructed NPO after midnight before surgery, except medications with 15 cc of water. Medication instructions provided according to the PAT guidelines. History Surgery Operation Date: 02/17/19 08:15 Proposed Procedures p L3-L4, L4-L5 Laminectomy - Wang Butler DO Height/Weight Height: 5 ft 3 in Weight: 113.9 kg Allergies Allergy/AdvReac Type Severity Reaction Status Date / Time neomycin Allergy Intermediate SWELLING, Verified 01/11/19 11:21 REDNESS nickel Allergy Unknown RASH Verified 01/11/19 11:21 adhesive AdvReac Intermediate SKIN Verified 01/11/19 11:21 IRRITATION Corticosteroids AdvReac Intermediate DIFFUSE Verified 01/11/19 11:21 (Glucocorticoids) PAIN,TACHYCARDIA,FEELING OF IMPENDING DOOM Medications Home Medications Medication Instructions Recorded Confirmed Last Taken acetaminophen [Tylenol Extra 1,000 mg PO QID PRN 01/11/19 01/11/19 Unknown Strength] allopurinol 300 mg PO HS 01/11/19 01/11/19 Unknown cholecalciferol (vitamin D3) 1,000 unit PO QAM 01/11/19 01/11/19 Unknown [Vitamin D3] cyanocobalamin (vitamin B-12) 1,000 mcg PO QAM 01/11/19 01/11/19 Unknown [Vitamin B-12] metformin 1,000 mg PO BID 01/11/19 01/11/19 Unknown metoprolol succinate 50 mg PO QPM 01/11/19 01/11/19 Unknown olmesartan-hydrochlorothiazide 1 tab PO QAM 01/11/19 01/11/19 Unknown [Benicar HCT] rosuvastatin [Crestor] 10 mg PO HS 01/11/19 01/11/19 Unknown Past Medical History Medical History Chronic back pain Degenerative disc disease +PAIN/TINGLING RADIATING DOWN LEFT LEG, WORSE IN FOOT Diabetes mellitus, type 2 Hyperlipidemia Hypertension Irritable bowel syndrome (IBS) Psoriasis Thyroid nodule FOLLOWING WITH [facility] [place] Exercise / Class Metabolic Activity III < 4 Walking/Shop/Light housework (Limited due to back pain. Able to slowly climb FOS. Denies CP. Denies SOB (but states that she doesn't really know because she can't really walk far due to pain right now)) Past Surgical History Surgical History History of arthroscopy RIGHT ROTATOR CUFF REPAIR 01/25/16 - Giordano #2, ETT #7, HiLo, Grade 1 View History of bilateral tubal ligation History of cataract extraction with lens replacement B/L History of eye surgery SCHEDULED FOR LEFT EYE VITRECTOMY January. History of hysterectomy TOTAL History of laminectomy 1979 CERVICAL LAMINECTOMY History of parathyroidectomy History of surgery HISTORY OF RECTAL/VAGINAL FISTULA REPAIR History of tonsillectomy History of total knee replacement RT S/P trigger finger release MULTIPLE Past Anesthesia History No Hx of Anesthesia Complications Youngest son had amnesia after having wisdom teeth out. History of PONV No Hx of PONV and Hx of Motion Sickness (Rarely, but has on occasion ) Social History Smoking Status: Former smoker Smoking cigarettes per day: 1 ppd x 19 years Do You Dip or Chew Tobacco: No Smoking End Date: Quit in 1981 Hx Alcohol Use: Yes Alcohol type: other alcohol intake frequency: holidays/special occasions only Alcohol Intake Frequency Comment: VERY RARE Hx Substance Use: No substance use type: does not use Review of Systems Patient denies chest pain, shortness of breath, dyspnea on exertion, reflux, cough, wheezing, palpitations. +Joint Pain (Back, Knees, Etc) Physical Exam Vital Signs BP: 128/80 P: 74 R: 14 T: 98.4 SPO2: 97% on RA Constitutional + morbidly obese ENMT Thyromental Distance: > or= 3.5 Finger Breadths (4) Mallampati Class: II Neck normal visual inspection and + thick neck; neck extension not limited Respiratory normal respiratory effort Auscultation: lungs clear to auscultation bilaterally Cardiovascular Rate/Rhythm: regular rate and regular rhythm Heart Sounds: no murmur Vessels: no carotid bruit Neurologic moves all extremities Psychiatric Orientation: alert and oriented x 3 Testing Electrocardiogram Date: 01/17/19 Findings: + NSR @ (75) and + no change from (10/09/17) Chest X-Ray Date: 01/17/19 Findings: + NAD FINDINGS: Lung volumes are normal. There is no pneumothorax or pleural effusion. There is no consolidation or evidence for pulmonary edema. Cardiomediastinal silhouette is unremarkable. IMPRESSION: No acute cardiopulmonary findings. Laboratory Results 01/17/19 09:50 01/17/19 09:50 PT 9.9 Seconds (9.0-12.0) 01/17/19 09:50 INR 1.0 (0.9-1.1) 01/17/19 09:50 APTT 28.2 Seconds (21.0-31.0) 01/17/19 09:50 [facility] 11/11/18 HgBA1C: 7.2
--- NOTE | 2019-01-17 10:13 | XRay Report ---
XR chest Pre-admission PA/Lat CLINICAL HISTORY: Preoperative evaluation. COMPARISON STUDY: Chest radiograph October 14, 2016. FINDINGS: Lung volumes are normal. There is no pneumothorax or pleural effusion. There is no consolid ation or evidence for pulmonary edema. Cardiomediastinal silhouette is unremarkable. IMPRESSION: No acute cardiopulmonary findings. Electronically signed by: Kurt Blandon M.D. 01/17/2019 10:12 AM
[2019-01-17 11:06] LABS: Basophils # (auto) 0.01 K/uL (0-0.2); Basophils % (auto) 0.1 %; Eosinophils # (auto) 0.22 K/uL (0-0.5); Eosinophils % (auto) 2.6 %; Hematocrit (blood only) 40.9 % (37-47); Hemoglobin 13.7 g/dL (12.0-16.0); Immature Granulocytes # (auto) 0.02 K/uL (0.00-0.02); Immature Granulocytes % (auto) 0.2 %; Lymphocytes # (auto) 1.78 K/uL (1.2-3.4); Lymphocytes % (auto) 20.7 %; Mean Corpuscular Hgb Conc 33.5 g/dL (32-36); Mean Corpuscular Volume 85.6 fL (80-100); Mean Platelet Volume 11.3 fL (7.4-10.4); Monocytes # (auto) 0.65 K/uL (0.11-0.59); Monocytes % (auto) 7.6 %; Neutrophils # (auto) 5.92 K/uL (1.4-6.5); Neutrophils % (auto) 68.8 %; Platelet Count 214 K/uL (130-400); RDW Coefficient of Variation 14.2 % (11.5-14.5); Red Blood Count 4.78 M/uL (4.2-5.4)
[2019-01-17 11:12] LABS: BUN Creatinine Ratio 20.6 (10-20); Calcium 9.8 mg/dl (8.5-10.1); Creatinine Clr Calc Pharmacy 60.6 ml/min; Est GFR (African American) 66.6; Est GFR (Non-African American) 57.4; Potassium 4.2 mmol/L (3.5-5.1)
[2019-01-17 11:16] LABS: Partial Thromboplastin Time 28.2 Seconds (21.0-31.0); Prothrombin Time 9.9 Seconds (9.0-12.0)
--- NOTE | 2019-02-16 11:14 | History and Physical Report ---
DATE OF ADMISSION: 02/17/2019 CHIEF COMPLAINT: Back pain, leg pain, lower extremity difficulty, paresthesias and neurogenic claudication, inability to ambulate. She has severe spinal stenosis of the spine. PAST MEDICAL HISTORY: Positive for diabetes, hypertension, stomach ulcers, morbid obesity, high cholesterol. PAST SURGICAL HISTORY: Cervical spine laminectomy, hysterectomy, cataracts, trigger finger, partial thyroidectomy. ALLERGIES: ORAL STEROIDS. FAMILY HISTORY: Father with tumor at age 80. SOCIAL HISTORY: , 2 children. Rarely drinks. No tobacco. Little activity. REVIEW OF SYSTEMS: Twelve system review; negative fevers, sweats, chills. Ear, nose and throat negative. Denies chest pain, palpitations. Denies asthma, wheezing. Denies nausea, vomiting, urgency, frequency. She has numbness, tingling, weakness, joint pain, stiffness and walking intolerance. MEDICATIONS: Metformin, allopurinol, metoprolol, hydrochlorothiazide. PHYSICAL EXAMINATION: GENERAL: She is 5 feet 3 inches, 250. Alert, oriented. VITAL SIGNS: Blood pressure 130/80, pulse 80, respiration 16. HEENT: Normal. HEART: Normal S1, S2. LUNGS: Clear to auscultation. No rales, rhonchi or wheezing. ABDOMEN: Soft, nontender. NEUROLOGIC: She has numbness and tingling. She has weakness of dorsiflexion. She has decreased ability to extend her spine. X-rays and MRIs reviewed. She has severe spinal stenosis of spine. IMPRESSION: Severe spinal stenosis, lumbar spine. PLAN: Includes a laminectomy 3-5 lumbar spine.
[~2019-02-17 11:44] MED LIST changes: -ALL300 PO; -ATOR-24 PO; -BNC/4025 PO; +CEFAZOLIN 2000MG 2,000 MG/15 ML SYR IV SCH; -METF-384 PO; -METO25TA3 PO; -SODI1.1C4 OR; +SODIUM CHLORIDE 0.9% 1000ML IV SCH
[2019-02-17] MEDS ORDERED: GELATIN SPONGE SZ 100 ONE (14:12)
[2019-02-17] MEDS ORDERED: VANCOMYCIN HCL 1000MG/20ML VIAL ONE (14:12)
[2019-02-17] MEDS ORDERED: THROMBIN FOR SOLN 20000 UNIT KIT ONE (14:12)
[2019-02-17] MEDS ORDERED: DEXAMETHASONE SOD INJ 4 MG/ML VIAL ONE (14:16)
[2019-02-17] MEDS ORDERED: PROPOFOL IV EMULSION 10 MG/ML 20 ML VIAL IV ONE (14:16)
[2019-02-17] MEDS ORDERED: LIDOCAINE HCL 2% 2 ML VIAL/AMP(20MG/ML) INFIL ONE (14:16)
[2019-02-17] MEDS ORDERED: SUCCINYLCHOLINE CHLORIDE 20 MG/ML 10 ML VIAL ONE (14:16)
[2019-02-17] MEDS ORDERED: NEOSTIGMINE METHYLSULFATE 5 MG/5 ML SYR ONE (14:16)
[2019-02-17] MEDS ORDERED: GLYCOPYRROLATE 0.2 MG/ML VIAL ONE (14:16)
[2019-02-17] MEDS ORDERED: PHENYLEPHRINE HCL 10 MG/ML VIAL ONE ×2 (14:16→15:45)
[2019-02-17] MEDS ORDERED: ONDANSETRON INJ 2 MG/ML 2 ML VIAL ONE (14:16)
[2019-02-17] MEDS ORDERED: ePHEDrine sulfate 50 MG/ML AMP ONE (14:16)
[2019-02-17] MEDS ORDERED: fentaNYL citrate 100 MCG/2 ML VIAL ONE (14:17)
[2019-02-17] MEDS ORDERED: MIDAZOLAM HCL 1 MG/ML 2ML VIAL ONE (14:30)
--- NOTE | 2019-02-17 14:44 | History & Physical Bridge Note ---
Date of Service February 17, 2019 History & Physical Bridge Note I have examined the patient, reviewed the History & Physical and in the interval since the performance of the History & Physical I have noted the following changes of clinical significance: no changes noted
[2019-02-17] MEDS ORDERED: BUPIVACAINE/EPINEPHRINE 0.5% MPF 1:200,000 30 ML VIAL ONE (14:45)
[2019-02-17] MEDS ORDERED: ePHEDrine sulfate 50 MG/ML AMP IV PRN (14:48)
[2019-02-17] MEDS ORDERED: PROMETHAZINE HCL 12.5 MG in SODIUM CHLORIDE 0.9% 50 ML IV PRN (14:48)
[2019-02-17] MEDS ORDERED: ATROPINE SULFATE 0.1 MG/ML 10ML SYR IV PRN (14:48)
[2019-02-17] MEDS ORDERED: LABETALOL HCL IV 5 MG/ML 20ML IV PRN (14:48)
[2019-02-17] MEDS ORDERED: ONDANSETRON INJ 2 MG/ML 2 ML VIAL IV PRN ×2 (14:48→17:39)
[2019-02-17] MEDS ORDERED: NALOXONE HCL 0.4 MG/1 ML VIAL/CARP IV PRN (14:48)
[2019-02-17] MEDS ORDERED: FLUMAZENIL 0.1 MG/1 ML 10 ML VIAL IV PRN (14:48)
[2019-02-17] MEDS ORDERED: ALBUTEROL HFA INHALER 8.5 GM ONE (15:45)
--- NOTE | 2019-02-17 16:16 | Fluoroscopy Report ---
INTRAOPERATIVE RADIOGRAPH CLINICAL HISTORY: L3-L5 laminectomy. Fluoroscopy time: 2 seconds. FINDINGS: A single spot fluoroscopic view of the lower lumbar spine is presented. A surgical probe pr ojects posteriorly at the level of L4-L5. IMPRESSION: Intraoperative lumbar spine image as above. See operative report for detailed findings. Electronically signed by: Stu Youssef M.D. 02/17/2019 4:14 PM
--- NOTE | 2019-02-17 16:17 | Post Operative Brief Note ---
Immediate Post Op Note v1 Date of Surgery February 17, 2019 Pre & Post Diagnosis Operation Date: 02/17/19 13:15 Pre-Op Diagnosis: Spinal Stenosis; Spondylolisthesis; Disc Herniation Post-Op Diagnosis: Spinal Stenosis; Spondylolisthesis; Disc Herniation Procedure Operation Date: 02/17/19 13:15 Actual Procedures p L3-L4, L4-L5 Laminectomy(Not Applicable) - Wang Butler DO Surgeon Wang Butler DO Manager Of Supply Chain chrystal Estimated Blood Loss 200 Findings Consistent with Post-Op Diagnosis Drains Padilla Catheter and Hemovac Drain
[2019-02-17] MEDS: HYDROmorphone INJ 1 MG/ML SYRINGE IV PRN ×6 (16:30→16:57)
[2019-02-17] MEDS ORDERED: MEPERIDINE HCL 25 MG/ML CARP ONE (17:00)
[2019-02-17] MEDS ORDERED: MEPERIDINE HCL 25 MG/ML CARP IV STA (17:12)
--- NOTE | 2019-02-17 17:18 | Anesthesiology Progress Note ---
Date of Service February 17, 2019 Anesthesia Post Procedure Vital Signs Vital Signs: Temp Pulse Resp BP Pulse Ox 02/17/19 17:10 90 16 146/63 H 94 02/17/19 17:00 90 16 155/67 H 97 02/17/19 16:50 96 H 16 151/64 H 97 02/17/19 16:40 96 H 16 141/69 H 98 02/17/19 16:30 100 H 16 156/86 H 98 02/17/19 16:24 36.7 C 99 H 16 151/71 H 100 02/17/19 12:17 36.9 C 86 18 165/82 H 94 Pain Intensity Lower Back: Pain Intensity: 7 Transfer of Care Handoff Completed per policy Notes Mental Status: alert / awake / arousable Patient Amnestic to Procedure: Yes Nausea / Vomiting: adequately controlled Pain: adequately controlled Airway Patency, RR, SpO2: stable & adequate BP & HR: stable & adequate Hydration State: stable & adequate Anesthetic Complications: no major complications apparent
[2019-02-17] MEDS ORDERED: OXYCODONE HCL IR 5 MG TAB (IMMEDIATE RELEASE) PO PRN (17:39)
[2019-02-17] MEDS ORDERED: MAGNESIUM HYDROXIDE SUSP 30 ML UDC PO PRN (17:39)
[2019-02-17] MEDS ORDERED: ACETAMINOPHEN 1,000 MG/100 ML VIAL IV PRN (17:39)
[2019-02-17] MEDS ORDERED: HYDROmorphone INJ 1 MG/ML SYRINGE IV PRN ×2 (17:39)
[2019-02-17] MEDS ORDERED: METFORMIN HCL 500 MG TAB PO SCH (18:00)
[2019-02-17] MEDS ORDERED: PHARMACY GLYCEMIC MGMT CONSULT PRN (18:26)
[2019-02-17] MEDS ORDERED: CARBOHYDRATES FOR HYPOGLYCEMIA PO PRN (18:45)
[2019-02-17] MEDS ORDERED: GLUCAGON FOR INJ 1 MG VIAL SQ PRN (18:45)
[2019-02-17] MEDS ORDERED: GLUCOSE 10 TABS/TUBE PO PRN (18:45)
[2019-02-17] MEDS ORDERED: GLUCOSE 40% GEL 15 GM TUBE PO PRN (18:45)
[2019-02-17] MEDS ORDERED: DEXTROSE 50% 50 ML SYRINGE IV PRN (18:45)
[2019-02-17] MEDS: INSULIN ASPART 100 UNITS/ML 3 ML PEN SC SCH ×2 (20:04→20:42)
[2019-02-17] MEDS: SODIUM CHLORIDE 0.9% 1000ML 1,000 ML IV SCH (20:05)
[2019-02-17] MEDS: OXYCODONE HCL IR 5 MG TAB (IMMEDIATE RELEASE) PO PRN (20:13)
--- NOTE | 2019-02-17 20:13 | Pharmacy Report ---
Glycemic Control Consultation - Date of Service February 17, 2019 - Scope Scope: Glycemic Pharmacist consulted by THIERRY Sarabia on 02/17/19 for glycemic control and to write orders per [facility] inpatient glycemic control protocol - Objective Weight: 112.8 kg Accuchecks BSG (last 24hrs): 02/17/19 02/17/19 02/17/19 12:10 16:27 17:49 POC Glucose 128 H 117 H 170 H - Recent Pertinent Medications Outpatient Anti-diabetic Regimen: * Metformin 1 gm BID * A1c = 7.1 % 10/09/17 Risk Factors for Insulin Resistance: * Recent Surgery: POD 0 s/p spinal surgery * Diet: type 2 diabetes - Assessment & Plan Assessment & Plan: ASSESSMENT: * 78 y/o female admitted s/p spinal surgery. She has a history of type 2 diab etes, managed with metformin at home. No periop steroids were administered so do not expect major increase in BSGs. * Pt is maintained on oral antidiabetic agents as an outpatient * Oral agents are not recommended for inpatient use d/t drug interactions, changing PO intake, and difficulty titrating for acute hyper/hypoglycemia. ADA recommends re-initiating outpatient oral agents 1-2 days prior to discharge if/when appropriate if they were held on admission. * Will hold oral agents for admission and utilize SQ bolus insulin regimen which is the recommended regimen for inpatient glycemic control. * Will initiate weight based insulin dosing (using stress level of 2) for insulin na�ve patient and titrate based on BSG trends. PLAN FOR INPATIENT GLYCEMIC CONTROL: * Holding outpatient oral diabetes medications - can consider resuming tomorrow * No basal for now since fasting BSGs below/near goal * Bolus insulin * NovoLog per scale ACHS or Q6hrs while NPO * Goal Range: Low 110 mg/dL - High 140 mg/dL * Correction Factor: 20 mg/dL/unit * Nutritional / Prandial insulin per carb ratio of 1 unit per 7 grams CHO consumed * A1c ordered w/ AM labs to determine plan for discharge * Please note that the plan above was derived based on current level of insulin resistance and hospital stress. These recommendations are appropriate for inp atient admission only. Plan of care upon discharge will need to be reassessed to avoid potential outpatient hypo/hyperglycemia. Thank you.
[2019-02-17] MEDS: DOCUSATE SODIUM 100 MG CAP PO SCH (20:15)
[2019-02-17] MEDS: ROSUVASTATIN CALCIUM 10 MG TAB PO SCH (20:16)
[2019-02-17] MEDS: METOPROLOL SUCC 50MG EXT REL TAB PO SCH (20:16)
[2019-02-17] MEDS: ALLOPURINOL 300 MG TAB PO SCH (20:16)
--- NOTE | 2019-02-17 23:21 | Operative Report ---
DATE OF OPERATION: 02/17/2019 PREOPERATIVE DIAGNOSIS: Severe spinal stenosis L3-L4, L4-L5 lumbar spine. POSTOPERATIVE DIAGNOSIS: Severe spinal stenosis L3-L4, L4-L5 lumbar spine. PROCEDURE: Laminectomy L3-L4, L4-L5 lumbar spine. SURGEON: Wang Butler DO COMORBIDITIES: Included morbid obesity. DESCRIPTION OF PROCEDURE: The patient was taken to the operating room, a general intubated anesthetic provided to the patient, placed prone, prepped and draped sterile. Formal timeout taken. I made a skin incision, fascial incision. We came right down the lamina. We marked it with a crosstable lateral radiograph. We did a thorough decompression of the 4-5 interval, all 5, all 4 and 3, foraminotomies and partial facetectomies were provided to the cauda equina area. I was very pleased with decompressions. The nerve roots were palpated and they are free of obstruction. We irrigated thoroughly with approximately 500 mL of fluid, closed over Gelfoam. Hemovac drain and vancomycin powder with 1 Vicryl, 2-0 and staple gun on the skin. Sterile dressings applied. The patient returned supine, extubated to PACU stable. No apparent complications. No implants used. Formal timeout taken and the patient was marked in the preop area prior to taking back to surgery. I attest to the content of the Intraoperative Record and any orders documented therein. Any exception s are noted below.
[2019-02-17] MEDS: CEFAZOLIN 2000MG 2,000 MG/15 ML SYR IV SCH (23:46)
[2019-02-18] MEDS: SODIUM CHLORIDE 0.9% 1000ML 1,000 ML IV SCH ×2 (05:05→09:30)
--- NOTE | 2019-02-18 07:57 | Anesthesiology Progress Note ---
Date of Service February 18, 2019 Anesthesia Post Procedure Vital Signs Vital Signs: Temp Pulse Pulse Pulse Resp BP BP 02/18/19 07:22 37.1 C 80 20 143/77 H 02/18/19 03:13 36.7 C 73 14 120/66 02/17/19 23:08 36.7 C 74 14 109/65 02/17/19 20:30 36.7 C 80 20 120/74 02/17/19 20:15 81 158/83 H 02/17/19 19:28 36.5 C 79 18 134/74 02/17/19 18:36 36.5 C 77 18 166/75 H 02/17/19 17:59 36.5 C 82 18 149/75 H 02/17/19 17:30 36.7 C 78 17 128/73 02/17/19 17:20 36.7 C 87 16 144/60 H 02/17/19 17:10 90 16 146/63 H 02/17/19 17:00 90 16 155/67 H 02/17/19 16:50 96 H 16 151/64 H 02/17/19 16:40 96 H 16 141/69 H 02/17/19 16:30 100 H 16 156/86 H 02/17/19 16:24 36.7 C 99 H 16 151/71 H 02/17/19 12:17 36.9 C 86 18 165/82 H Pulse Ox 02/18/19 07:22 97 02/18/19 03:13 96 02/17/19 23:08 96 02/17/19 20:30 91 02/17/19 20:15 02/17/19 19:28 96 02/17/19 18:36 97 02/17/19 17:59 96 02/17/19 17:30 96 02/17/19 17:20 96 02/17/19 17:10 94 02/17/19 17:00 97 02/17/19 16:50 97 02/17/19 16:40 98 02/17/19 16:30 98 02/17/19 16:24 100 02/17/19 12:17 94 Pain Intensity Lower Back: Pain Intensity: 7 Notes Mental Status: alert / awake / arousable and participated in evaluation Patient Amnestic to Procedure: Yes Nausea / Vomiting: adequately controlled Pain: adequately controlled Airway Patency, RR, SpO2: stable & adequate BP & HR: stable & adequate Hydration State: stable & adequate Anesthetic Complications: no major complications apparent and Pt Satisfied with anesthetic care
--- NOTE | 2019-02-18 08:25 | Progress Note ---
DATE: 02/18/2019 SUBJECTIVE: She is alert, oriented this morning, out of bed to chair to chair, taking p.o. Pain controlled. She did have an episode last night of shortness of breath, some chest pain, swallowing difficulty that has improved. OBJECTIVE: Neurologically intact. Moves all extremities and she is afebrile. ASSESSMENT: Status post major reconstructive laminectomy surgery. PLAN: At this point in time, we will get her out of bed to chair, up and ambulatory if possible. Tentative discharge home tomorrow with home health or rehab.
[2019-02-18] MEDS: CEFAZOLIN 2000MG 2,000 MG/15 ML SYR IV SCH ×2 (09:31→17:43)
[2019-02-18] MEDS: INSULIN ASPART 100 UNITS/ML 3 ML PEN SC SCH ×4 (09:31→21:21)
[2019-02-18] MEDS: hydroCHLOROthiazide 25 MG TAB PO SCH (09:32)
[2019-02-18] MEDS: OLMESARTAN MEDOXOMIL 40 MG TAB PO SCH (09:33)
[2019-02-18] MEDS: DOCUSATE SODIUM 100 MG CAP PO SCH ×2 (09:33→21:15)
[2019-02-18 10:25] LABS: Estimated Average Glucose 166 mg/dl; Hemoglobin A1C 7.4 % (4.5-5.6)
[2019-02-18] MEDS: OXYCODONE HCL IR 5 MG TAB (IMMEDIATE RELEASE) PO PRN ×2 (15:27→21:13)
[2019-02-18] MEDS: METOPROLOL SUCC 50MG EXT REL TAB PO SCH (21:15)
[2019-02-18] MEDS: ROSUVASTATIN CALCIUM 10 MG TAB PO SCH (21:15)
[2019-02-18] MEDS: ALLOPURINOL 300 MG TAB PO SCH (21:15)
[2019-02-19] MEDS ORDERED: BISACODYL 5 MG TABEC PO PRN (06:00)
[2019-02-19] MEDS: hydroCHLOROthiazide 25 MG TAB PO SCH (07:21)
[2019-02-19] MEDS: OLMESARTAN MEDOXOMIL 40 MG TAB PO SCH (07:21)
[2019-02-19] MEDS: OXYCODONE HCL IR 5 MG TAB (IMMEDIATE RELEASE) PO PRN (07:21)
[2019-02-19] MEDS: DOCUSATE SODIUM 100 MG CAP PO SCH (07:21)
[2019-02-19] MEDS: INSULIN ASPART 100 UNITS/ML 3 ML PEN SC SCH (09:12)
--- NOTE | 2019-02-19 09:24 | Pharmacy Report ---
Pharmacy Glycemic Short Note 2 - Date of Service February 19, 2019 - Glycemic Short BSG Results (Last 24 hours): 02/18/19 02/18/19 02/18/19 12:26 17:29 20:38 POC Glucose 166 H 123 H 168 H 02/19/19 08:15 POC Glucose 146 H ASSESSMENT: 02/19/19 * POD2 spinal surgery, blood sugars mostly at goal, slightly above after some meals, will tighten CR at this time. * Resume metformin today with dinner, will loosen CR at that time but will continue for good glycemic control postop for healing. * Plan for patient to discharge to home tomorrow. 02/17/19 * 78 y/o female admitted s/p spinal surgery. She has a history of type 2 diabetes, managed with metformin at home. No periop steroids were administered so do not expect major increase in BSGs. * Pt is maintained on oral antidiabetic agents as an outpatient * Oral agents are not recommended for inpatient use d/t drug interactions, changing PO intake, and difficulty titrating for acute hyper/hypoglycemia. ADA recommends re-initiating outpatient oral agents 1-2 days prior to discharge if/when appropriate if they were held on admission. * Will hold oral agents for admission and utilize SQ bolus insulin regimen which is the recommended regimen for inpatient glycemic control. * Will initiate weight based insulin dosing (using stress level of 2) for insulin na�ve patient and titrate based on BSG trends. PLAN FOR INPATIENT GLYCEMIC CONTROL: * Metformin 1g PO BID with meals starting with dinner tonight * Bolus insulin * NovoLog per scale ACHS or Q6hrs while NPO * Goal Range: Low 110 mg/dL - High 140 mg/dL * Correction Factor: 20 mg/dL/unit * TIGHTEN: Nutritional / Prandial insulin per carb ratio of 1 unit per 6 grams CHO consumed, * then LOOSEN to 1 unit per 10 grams CHO consumed with dinner when metformin restarted PLAN FOR DISCHARGE: * A1c 7.4%, for patient's age and comorbidities, slightly elevated, reinforce healthy lifestyle/eating/exercise at this time to decrease insulin resistance.
--- NOTE | 2019-02-19 21:56 | Discharge Summary ---
She is alert, oriented, minimal complaints of pain. Afebrile. Passed physical therapy. Wound protected. She has had an uneventful course for a major lumbar spine surgery. She has been in the hospital now approximately 40 hours. She will be discharged home in improved stable condition today. Prescriptions on her chart. Instructions given, precautions as well and a followup appointment is already made in about 12 days from today.
--- NOTE | 2019-02-22 21:32 | Operative Report ---
DATE OF OPERATION: 02/17/2019 DATE OF SURGERY: 02/17/2019 PREOPERATIVE DIAGNOSIS: Severe spinal stenosis lumbar spine L3-4 and L4-5, 2 level spinal stenosis surgery. POSTOPERATIVE DIAGNOSIS: Severe spinal stenosis lumbar spine L3-4 and L4-5, 2 level spinal stenosis surgery. PROCEDURE: Included 2 level laminectomy L3-4, L4-5 lumbar spine. No fusion required. Prior to taking the patient back to the operating room, she was formally identified and marked in the preop area. She was brought back to the operating room and general intubated anesthetic provided to the patient. Antibiotics provided. Placed prone, prepped and draped sterile. Formal timeout done. We made a skin incision, fascial incision. We were able to get down to the spine fairly, overweight individual, although the dissection was fairly readily accomplished. We then got down to the L4-5 interval, marked this with C-arm guidance. We did a formal laminectomy of L5, L4 and L3 of the lumbar spine, foraminotomies, partial facetectomies. I did not feel the patient was grossly unstable. Thus, it did not feel a fusion technology was required. I probed each and every nerve root. The dura was free of obstruction. There were no apparent injury. We irrigated thoroughly, closed over vancomycin powder, closed over a drain and soft tissue closed with 1-0 Vicryl, 2-0 in a subcuticular layer, and 3-0 nylon on the skin. Sterile dressings applied. The patient returned to PACU stable. No apparent complications. I attest to the content of the Intraoperative Record and any orders documented therein. Any exception s are noted below.
== END 2019-02-19 12:43 | disposition home health service (06) ==
LOC: 3N 11:44 → PAT 11:44